=== PATIENT | female | born 1955 | race Caucasian/White ===

== ENCOUNTER 2017-10-25 10:53 | Inpatient (IN) ==
--- NOTE | 2017-10-25 13:39 | Emergency Department Note ---
Disposition Clinical Impression: Closed compression fracture of L3 lumbar vertebra Qualifiers: Encounter type: initial encounter Qualified Code(s): S32.030A - Wedge compression fracture of third lumbar vertebra, initial encounter for closed fracture Disposition: Admitted As Inpatient Condition: Fair Referrals: Alma Rosa Wilburn CNP [Primary Care Provider] - Forms: ED Satisfaction Letter Back Pain HPI - General Chief Complaint: ED Back Pain/Injury Stated Complaint: back pain Time Seen by Provider: 10/25/17 11:32 Source: patient Mode of arrival: private vehicle Limitations: no limitations Nursing Notes Reviewed: Yes Vital Signs Reviewed: Yes - History of Present Illness Pt Subjective Complaint: back pain, back injury Onset (ago): day(s) (1) Duration: constant Similar Symptoms Previously: No Location: lumbar spine Pain Severity: severe Quality: sharp, stabbing, aching Radiation: none Improves with: immobilization Worsens with: movement, sitting upright, walking Context: while lifting (a heavy couch) Associated symptoms: Denies: numbness, weakness, difficulty walking, incontinence of bowel/bladder, fever, chills, abdominal pain, dysuria, hematuria Treatments prior to arrival: NSAIDS - Related Data Home Medications Medication Instructions Recorded Confirmed Lisinopril [Zestril] 40 mg PO DAILY 01/31/17 10/25/17 Aspirin Enteric Coated [Aspirin EC] 81 mg PO DAILY 08/06/17 10/25/17 Atorvastatin [Lipitor] 10 mg PO HS 08/06/17 10/25/17 Fluticasone/Vilanterol [Breo 1 each IH DAILY 08/06/17 10/25/17 Ellipta 200-25 Mcg INH] Metoprolol Tartrate [Lopressor] 50 mg PO BID 08/06/17 10/25/17 amLODIPine [Norvasc] 5 mg PO DAILY 08/06/17 10/25/17 Ibuprofen [Motrin] 800 mg PO Q8HR PRN 10/25/17 10/25/17 Nitroglycerin [Nitrostat] 0.4 mg SL Q5M PRN 10/25/17 10/25/17 Allergies Allergy/AdvReac Type Severity Reaction Status Date / Time No Known Allergies Allergy Verified 10/25/17 11:10 All systems ED: reviewed and negative except as stated. Review of Systems: As Per HPI Constitutional: Denies: fever, chills, weakness Cardiovascular: Denies: chest pain, palpitations Gastrointestinal: Denies: abdominal pain, nausea, vomiting, diarrhea, constipation Genitourinary: Denies: urgency, dysuria, frequency, hematuria Musculoskeletal: Reports: as per HPI, back pain. Denies: neck pain, joint swelling Integumentary: Denies: rash Neurological: Denies: headache, weakness, numbness, paresthesias, confusion, abnormal gait, vertigo Hematological/Lymphatic: Denies: easy bleeding, easy bruising Past Medical History - Past Medical History Attestation: Yes The following information was validated with the patient. Source: patient Medical history: Reports: arthritis, COPD, coronary artery disease, hyperlipidemia, hypertension, other Surgical history: Reports: hysterectomy Psychiatric history: Reports: no psych history - Social History Smoking Status: Current every day smoker Smokeless Tobacco Status: No Alcohol use: Reports: occasionally Drug use: Reports: none Physical Exam - General Limitations: no limitations General appearance: alert, in no apparent distress - Head Head exam: atraumatic, normocephalic, normal inspection - Eye Eye exam: Present: normal appearance, PERRL. Absent: scleral icterus, conjunctival injection, periorbital swelling - ENT ENT exam: mucous membranes moist - Neck Neck exam: Present: normal inspection, full ROM, trachea midline. Absent: tenderness - Chest Chest inspection: Present: normal inspection - Respiratory Respiratory exam: Absent: respiratory distress - Cardiovascular Cardiovascular exam: Present: regular rate - Extremities Exam Extremities exam: Present: normal inspection, full ROM, normal capillary refill. Absent: tenderness, pedal edema - Expanded Lower Extremity Exam Gait: observed and limited by pain, antalgic - Back Exam Back exam: Present: normal inspection, tenderness, muscle spasm, paraspinal tenderness, vertebral tenderness (mid lumbar spine). Absent: full ROM, CVA tenderness (R), CVA tenderness (L), sciatic notch tenderness (R), sciatic notch tenderness (L) - Neurological Exam Neurological exam: Present: alert, oriented X3, CN II-XII intact, reflexes normal. Absent: motor sensory deficit - Psychiatric Psychiatric exam: Present: normal affect, normal mood - Skin Skin exam: Present: warm, dry, intact, normal color Course Course Narrative: PAtient moved furniture yesterday and while lifting a heavy couch she felt and heard a cracking sound in her back. She has had pain since then. It was worse upon waking this AM. She has no Hx of back injury or surgery and denies known osteoporosis or osteopenia. She has no signs or symptoms concerning for acute cord compression or epidural abscess. Xray ordered per nursing protocol. Xray shows a compression deformity of L3 vertebrae. MRI recommended. Patient is tender in this area. Pain meds ordered and Dr. Amador paged for consult. - Consultations Consultation #1: Case was discussed with Dr. Amador. He recommends admission to the hospitalist and MRI. Case was discussed with Dr. Henry. He has had [id number] time with the patient and agrees with the assessment and plan. Time: 13:45 Vital Signs Temperature 99.2 F 10/25/17 11:11 Pulse Rate 75 10/25/17 11:11 Respiratory Rate 20 10/25/17 11:11 Blood Pressure 143/81 10/25/17 11:11 O2 Sat by Pulse Oximetry 96 10/25/17 11:11 Temperature 99.2 F 10/25/17 11:11 Pulse Rate 75 10/25/17 11:11 Respiratory Rate 20 10/25/17 11:11 Blood Pressure 143/81 10/25/17 11:11 O2 Sat by Pulse Oximetry 96 10/25/17 11:11 Oxygen Delivery Oxygen Delivery Room Air Back Pain/Injury - Medical Records Medical records reviewed: Yes I reviewed the patient's medical records. - Radiology Data Radiology results reviewed: Yes I reviewed the patient's radiology results. Lumbar Spine X-Ray 10/25/17 12:19 IMPRESSION: Compression deformity of L3, possibly acute although technically age-indeterminate. If there is midline tenderness localized to this area, MRI should be considered to evaluate for acuity. D/ / John Croft MD / John Croft MD Interpreting Provider: John Croft MD
[2017-10-25] MEDS ORDERED: *HR* HYDROmorphone (PF) 1 MG/ML SYRINGE IM ONE (13:40)
[2017-10-25] MEDS ORDERED: Ondansetron ODT 4 MG TAB.RAPDIS SL ONE (13:40)
--- NOTE | 2017-10-25 13:57 | Emergency Department Note ---
Disposition Clinical Impression: Closed compression fracture of L3 lumbar vertebra Disposition: Admitted As Inpatient Condition: Fair General Adult HPI - General Chief complaint: ED Back Pain/Injury Stated complaint: back pain Time Seen by Provider: 10/25/17 11:32 Source: patient Limitations: no limitations - History of Present Illness Pain Scale: 8 - Related Data Home Medications Medication Instructions Recorded Confirmed Lisinopril [Zestril] 40 mg PO DAILY 01/31/17 10/25/17 Aspirin Enteric Coated [Aspirin EC] 81 mg PO DAILY 08/06/17 10/25/17 Atorvastatin [Lipitor] 10 mg PO HS 08/06/17 10/25/17 Fluticasone/Vilanterol [Breo 1 each IH DAILY 08/06/17 10/25/17 Ellipta 200-25 Mcg INH] Metoprolol Tartrate [Lopressor] 50 mg PO BID 08/06/17 10/25/17 amLODIPine [Norvasc] 5 mg PO DAILY 08/06/17 10/25/17 Ibuprofen [Motrin] 800 mg PO Q8HR PRN 10/25/17 10/25/17 Nitroglycerin [Nitrostat] 0.4 mg SL Q5M PRN 10/25/17 10/25/17 Ventolin Hfa 2 puff IH Q4H PRN 10/25/17 10/25/17 Allergies Allergy/AdvReac Type Severity Reaction Status Date / Time No Known Allergies Allergy Verified 10/25/17 11:10 Past Medical History - Past Medical History Medical history: Reports: arthritis, COPD, coronary artery disease, hyperlipidemia, hypertension, other Surgical history: Reports: hysterectomy Psychiatric history: Reports: no psych history - Social History Smoking Status: Current every day smoker Smokeless Tobacco Status: No Alcohol use: Reports: occasionally Drug use: Reports: none Physical Exam - General Limitations: no limitations General appearance: alert Course Vital Signs Temperature 99.2 F 10/25/17 11:11 Pulse Rate 75 10/25/17 11:11 Respiratory Rate 20 10/25/17 11:11 Blood Pressure 143/81 10/25/17 11:11 O2 Sat by Pulse Oximetry 96 10/25/17 11:11 Temperature 98.0 F 10/25/17 14:52 Pulse Rate 75 10/25/17 11:11 Respiratory Rate 18 10/25/17 14:52 Blood Pressure 125/75 10/25/17 14:52 O2 Sat by Pulse Oximetry 96 10/25/17 11:11 Oxygen Delivery Oxygen Delivery Room Air Attestation Statement - Attestation Attestation: For this encounter, I have reviewed the RADIO STATION MANAGER or PA documentation, treatment plan, and medical decision making; and I have had face to face time with this patient.Face to face time provided. Ortho-spine recs admission due to back fracture. She appears in no acute distress on exam
[2017-10-25] MEDS ORDERED: Naloxone 0.4 MG/ML INJ IVP PRN (16:00)
[2017-10-25] MEDS ORDERED: Ondansetron ODT 4 MG TAB.RAPDIS SL PRN (16:00)
[2017-10-25] MEDS ORDERED: Acetaminophen 325 MG TABLET PO PRN (16:00)
[2017-10-25] MEDS ORDERED: Nitroglycerin 0.4 MG TAB.SUBL SL PRN (16:03)
[2017-10-25] MEDS: *HR* HYDROmorphone (PF) 1 MG/ML SYRINGE IVP PRN ×2 (17:38→22:42)
[2017-10-25 18:05] LABS: Basophils # 0.1 K/mcL (0.0-0.2); Basophils % 0.6 %; Eosinophils # 0.3 K/mcL (0.0-0.6); Eosinophils % 2.8 %; Hematocrit 39.3 % (35.3-44.9); Hemoglobin 13.1 g/dL (11.5-15.4); Immature Granulocytes % 0.3 % (0-4); Lymphocytes # 1.5 K/mcL (0.6-4.6); Lymphocytes % 15.8 %; Mean Corpuscular HGB Conc 33.3 g/dL (31.6-35.5); Mean Corpuscular Hemoglobin 35.3 pg (28.0-33.3); Mean Corpuscular Volume 105.9 fL (83.0-100.0); Mean Platelet Volume 9.7 fL (9.4-12.4); Monocytes # 0.8 K/mcL (0.0-1.3); Monocytes % 8.7 %; Neutrophils # 6.8 K/mcL (1.6-8.9); Platelet Count 182 K/mcL (140-400); Red Blood Count 3.71 M/mcL (3.82-4.97); Red Cell Distribution Width 12.7 % (11.5-14.5); Segmented Neutrophils % 71.8 %
--- NOTE | 2017-10-25 18:16 | Internal Med History&Physical ---
Date of Encounter: 10/25/17 Time of Encounter: 18:11 Assessment and Plan (1) Closed compression fracture of L3 lumbar vertebra Current visit: Yes Status: Acute X-ray shows a compression deformity of L3 vertebrae-MRI has been ordered Dr. Amador orthopedic spine has been consulted We will continue with Dilaudid for pain Lidoderm patches Consult PT OT Qualifiers: Encounter type: initial encounter Qualified Code(s): S32.030A - Wedge compression fracture of third lumbar vertebra, initial encounter for closed fracture (2) COPD (chronic obstructive pulmonary disease) Current visit: Yes Status: Chronic Presently she is stable we will continue with oxygen and bronchodilators Qualifiers: COPD type: unspecified COPD Qualified Code(s): J44.9 - Chronic obstructive pulmonary disease, unspecified (3) CAD (coronary artery disease) Current visit: Yes Status: Chronic Continue with ASA beta nina statin leon nitrates as needed for chest pain Qualifiers: Coronary Disease-Associated Artery/Lesion type: red devil artery [place] vs. transplanted heart: red devil heart Associated angina: without angina Qualified Code(s): I25.10 - Atherosclerotic heart disease of red devil coronary artery without angina pectoris (4) DVT prophylaxis Current visit: Yes Status: Acute Heparin subcutaneous Internal Medicine - H&P: HPI Chief complaint: back pain Admitted From: Emergency Dept Plans for Post Hospital Care: Home History of present illness: Ms. Hooker is a 62 year old female past medical history COPD hypertension coronary artery disease tobacco use. According to the patient she has been in her usual state of health. Yesterday she attempted to move furniture while lifting a heavy couch she felt and heard a large cracking sound in her back. She experienced pain in her lower back. She went to lie down hoping the pain would ease. This a.m. when she awoke she continued to experience lower back pain. She denies any past history of back injury surgeries or osteoporosis. She denies any loss of bowel or bladder numbness tingling or loss of sensation. She presented to the ER with the above complaints x-ray was obtained which did reveal compression deformity of L3 vertebrae. Dr. Amador was consulted and MRI has been obtained. I did review this case with Dr. Chaparro who agrees with plan. Past Med Surg Social Fam HX - Past Medical History Medical history: arthritis, COPD, coronary artery disease, hyperlipidemia, hypertension, other Psychiatric history: no psych history - Past Surgical History Surgical History: hysterectomy - Social History Smoking Status: Current every day smoker Packs per day: 0.5 Smokeless Tobacco Status: No Alcohol use: occasionally Drug use: none - Family History Mother Living Status: Cause of : Ovarian cancer Father Living Status: Still Living Hx Family Cardiac Disorders: Yes (Heart disease) Internal Medicine - H&P: Meds Lisinopril [Zestril] 40 mg PO DAILY 01/31/17 [History] Aspirin Enteric Coated [Aspirin EC] 81 mg PO DAILY 08/06/17 [History] Atorvastatin [Lipitor] 10 mg PO HS 08/06/17 [History] Fluticasone/Vilanterol [Breo Ellipta 200-25 Mcg INH] 1 each IH DAILY 08/06/17 [ History] Metoprolol Tartrate [Lopressor] 50 mg PO BID 08/06/17 [History] amLODIPine [Norvasc] 5 mg PO DAILY 08/06/17 [History] Ibuprofen [Motrin] 800 mg PO Q8HR PRN 10/25/17 [History] Nitroglycerin [Nitrostat] 0.4 mg SL Q5M PRN 10/25/17 [History] Ventolin Hfa 2 puff IH Q4H PRN 10/25/17 [History] 3 Allergy/AdvReac Type Severity Reaction Status Date / Time No Known Allergies Allergy Verified 10/25/17 11:10 All Systems PM: A 10-system review of systems was performed and is negative for pertinent findings except as documented above in the HPI. - Constitutional Constitutional: no chills, no fever(s), no night sweats - EENT Eyes: no change in vision, no discharge, no pain, no photophobia Nose, mouth and throat: no dysphagia, no nasal discharge, no neck pain, no sore throat - Cardiovascular Cardiovascular ROS IM: no chest pain, no diaphoresis, no dyspnea, no lightheadedness, no palpitations, no syncope - Respiratory Respiratory: no cough, no dyspnea, no wheezing, no excessive phlegm production - Gastrointestinal Gastrointestinal: no abdominal pain, no diarrhea, no hematemesis, no hematochezia, no melena, no nausea, no vomiting - Genitourinary Genitourinary: no change in urinary stream, no dysuria, no flank pain, no hematuria - Musculoskeletal Musculoskeletal ROS IM: back pain - Integumentary Integumentary IM: no rash, no unusual bruising - Neurological Neurological ROS: no confusion, no convulsions, no focal weakness, no numbness, no tingling, no tremor(s) - Hematologic/Lymphatic Hematologic/Lymphatic: no easy bruising - Constitutional Vitals: Temp Pulse Resp BP Pulse Ox 98.0 F 75 18 125/75 96 10/25/17 14:52 10/25/17 11:11 10/25/17 14:52 10/25/17 14:52 10/25/17 11:11 General appearance: Present: A&O X 3, answers questions appropriately - Head Head exam: Present: atraumatic, normocephalic - Eye Eye exam: Present: PERRL, conjuntiva pink, sclera anicteric Pupils: Present: PERRL - Neck Neck exam general surgery: Present: supple, trachea midline. Absent: lymphadenopathy - Respiratory Respiratory exam: Present: CTAB. Absent: accessory muscle use, rales, rhonchi, wheezes - Cardiovascular Cardiovascular exam: Present: RRR, +S1, +S2. Absent: diastolic murmur, gallop, rubs, systolic murmur - GI/Abdominal GI/Abdominal exam: Present: normal bowel sounds, soft, no peritoneal signs. Absent: distended, tenderness - Extremities Exam Extremities exam: Present: warm, radial pulses palpable and symmetrical. Absent : calf tenderness, cyanotic, pedal edema - Neurological Exam Neurological exam: Present: CN II-XII intact, oriented X3, no focal deficits. Absent: pronater drift, facial droop, speech deficit - Skin Skin exam: Present: dry, intact Internal Med - H&P Results - Labs CBC & Chem 7: 10/25/17 17:56 10/25/17 17:56 Labs: Short CBC 10/25/17 Range/Units 17:56 WBC 9.5 (4.3-11.1) K/mcL Hgb 13.1 (11.5-15.4) g/dL Hct 39.3 (35.3-44.9) % Plt Count 182 (140-400) K/mcL Neutrophils # 6.8 (1.6-8.9) K/mcL - Diagnostic Studies Other Images Additional comments: Lumbar Spine X-Ray 10/25/17 12:19 IMPRESSION: Compression deformity of L3, possibly acute although technically age-indeterminate. If there is midline tenderness localized to this area, MRI should be considered to evaluate for acuity. D/ / John Croft MD / John Croft MD Interpreting Provider: John Croft MD Lumbar Spine MRI 10/25/17 14:20 IMPRESSION: Acute superior endplate fracture of L3. The findings were sent to the Radiology Results Communication Center at 5:07 pm on 10/25/2017to be communicated to a licensed caregiver. D/ / Quincy Marley MD / Quincy Marley MD Interpreting Provider: Quincy Marley MD - VTE Documentation of Mechanical Device: Intermittent pneumatic compression device
[2017-10-25 18:18] LABS: BUN/Creatinine Ratio 17 (6-26); Blood Urea Nitrogen 12 mg/dL (8-23); Calcium 9.1 mg/dL (8.6-10.3); Carbon Dioxide 28 mEq/L (23-29); Chloride 106 mEq/L (98-107); Glucose 118 mg/dL (70-105); Magnesium 1.8 mg/dL (1.6-2.6); Osmolality,Calculated 287 (280-300); Potassium 3.2 mEq/L (3.5-5.1); Sodium 138 mEq/L (136-145); eGFR For African Americans > 60 (> 60); eGFR For Non-African Americans > 60 (> 60)
[2017-10-25] MEDS: *HR* Heparin 5,000 UNIT/ML VIAL SQ SCH (18:39)
--- NOTE | 2017-10-25 18:46 | Event Note ---
Date of Encounter: 10/25/17 Time of Encounter: 18:46 Patient and examined with nurse practitioner. Agree with assessment and plan
[2017-10-26 01:35] LABS: Basophils % 0.5 %; Eosinophils # 0.3 K/mcL (0.0-0.6); Hematocrit 35.9 % (35.3-44.9); Immature Granulocytes % 0.5 % (0-4); Lymphocytes # 1.5 K/mcL (0.6-4.6); Lymphocytes % 17.9 %; Mean Corpuscular HGB Conc 33.4 g/dL (31.6-35.5); Mean Corpuscular Hemoglobin 35.8 pg (28.0-33.3); Mean Corpuscular Volume 107.2 fL (83.0-100.0); Mean Platelet Volume 10.1 fL (9.4-12.4); Monocytes # 0.9 K/mcL (0.0-1.3); Monocytes % 10.5 %; Neutrophils # 5.8 K/mcL (1.6-8.9); Platelet Count 167 K/mcL (140-400); Red Blood Count 3.35 M/mcL (3.82-4.97); Red Cell Distribution Width 12.7 % (11.5-14.5); Segmented Neutrophils % 67.6 %
[2017-10-26 01:40] LABS: Prothrombin Time 10.2 Seconds (9.4-12.1)
[2017-10-26 01:42] LABS: Activated Partial Thrombo Time 27.1 Seconds (26.0-36.0)
[2017-10-26 01:52] LABS: BUN/Creatinine Ratio 16 (6-26); Blood Urea Nitrogen 11 mg/dL (8-23); Calcium 8.6 mg/dL (8.6-10.3); Carbon Dioxide 27 mEq/L (23-29); Chloride 105 mEq/L (98-107); Glucose 102 mg/dL (70-105); Osmolality,Calculated 284 (280-300); Potassium 2.9 mEq/L (3.5-5.1); Sodium 137 mEq/L (136-145); eGFR For African Americans > 60 (> 60); eGFR For Non-African Americans > 60 (> 60)
[2017-10-26] MEDS: *HR* Heparin 5,000 UNIT/ML VIAL SQ SCH (02:20)
[2017-10-26] MEDS: *HR* HYDROmorphone (PF) 1 MG/ML SYRINGE IVP PRN ×3 (03:00→12:52)
[2017-10-26] MEDS ORDERED: Potassium Chloride Elixir 20 MEQ/15 ML UDC PO ONE (05:17)
[2017-10-26] MEDS ORDERED: amLODIPine 5 MG TABLET PO SCH (09:00)
[2017-10-26] MEDS ORDERED: (Fluticasone/Vilanterol [Breo Ellipta 200-25 Mcg Inh]) IH SCH (09:00)
[2017-10-26] MEDS ORDERED: Lisinopril 20 MG TABLET PO SCH (09:00)
[2017-10-26] MEDS ORDERED: Aspirin Enteric Coated 81 MG Tablet PO SCH (09:00)
[2017-10-26 14:24] LABS: Magnesium 1.6 mg/dL (1.6-2.6); Potassium 3.7 mEq/L (3.5-5.1)
--- NOTE | 2017-10-26 15:24 | Discharge Summary ---
Date of Encounter: 10/26/17 Time of Encounter: 15:22 - Discharge Medications Prescriptions: HYDROcodone/Acet 5/325 mg [[place] 5-325 mg] 1 tab PO Q4H PRN #20 tab PRN Reason: Moderate Pain Home Medications: Lisinopril [Zestril] 40 mg PO DAILY 01/31/17 [History] Aspirin Enteric Coated [Aspirin EC] 81 mg PO DAILY 08/06/17 [History] Atorvastatin [Lipitor] 10 mg PO HS 08/06/17 [History] Fluticasone/Vilanterol [Breo Ellipta 200-25 Mcg INH] 1 each IH DAILY 08/06/17 [ History] Metoprolol Tartrate [Lopressor] 50 mg PO BID 08/06/17 [History] amLODIPine [Norvasc] 5 mg PO DAILY 08/06/17 [History] Ibuprofen [Motrin] 800 mg PO Q8HR PRN 10/25/17 [History] Nitroglycerin [Nitrostat] 0.4 mg SL Q5M PRN 10/25/17 [History] Ventolin Hfa 2 puff IH Q4H PRN 10/25/17 [History] HYDROcodone/Acet 5/325 mg [[place] 5-325 mg] 1 tab PO Q4H PRN #20 tab 10/26/17 [Rx ] Allergies/Adverse Reactions: 3 Allergy/AdvReac Type Severity Reaction Status Date / Time No Known Allergies Allergy Verified 10/25/17 11:10 Date of admission: 10/25/17 16:00 Primary care physician: Alma Rosa Wilburn, - Patient Status Disposition: Home Health Service Condition: Fair - Discharge Instructions Follow Up With: Noble Amador Jr, MD [Partnered Physician] - 10/29/17 8:00 am (Per Dr Hurst) Additional Instructions: Take medications as prescribed. Go to follow-up appointment. Interval History: Patient presented after sudden onset back pain while she was lifting a couch. She sustained an acute L3 fracture wih 25% height loss. Patient is able to bare weight, still needs home PT. She has no neurological deficits. Will give the patient norco and prescription for back brace. Follow up with spine surgeon as outpatient. A family member will move to live with her in the house. She is agreable to above plan. Hospital course: Ms. Hooker is a 62 year old female - Time Spent with Patient Total time spent providing and/or coordinating discharge services: - Constitutional Vitals: Temp Pulse Resp BP Pulse Ox 98.0 F 67 17 117/62 93 10/26/17 12:11 10/26/17 12:11 10/26/17 12:11 10/26/17 12:11 10/26/17 12:11 General appearance: Present: A&O X 3, answers questions appropriately Exam: Genral: patient is Aand O not in distress Cardiac: Normal S1, S2, no additional sounds or murmurs Chest: Clear to auscultation Abdomen: soft non tender, non distended, Normal BS Neuro: no focal deficits LE: Can raise both lower extremetuies against gravity - VTE Documentation of Mechanical Device: Intermittent pneumatic compression device
[2017-10-26 15:58] VITALS: BP 144/83
--- NOTE | 2017-10-26 16:13 | Physician Discharge Referral ---
Home Health/Hosp Referral Info Transfer to: Home Health - Respiratory Orders Smoking Cessation: Smoking cessation has been advised. For more information, call the [place] Tobacco Quit Line at 4-381-FHSH-NOW. - Diet/Nutrition Diet/Nutrition Orders: Regular - Activity Activity Orders: Walker - Services Needed Following services are medically necessary services: Nursing, Physical Therapy, Occupational Therapy - Transfer Medications Prescriptions: HYDROcodone/Acet 5/325 mg [[place] 5-325 mg] 1 tab PO Q4H PRN #20 tab PRN Reason: Moderate Pain Home Medications: Lisinopril [Zestril] 40 mg PO DAILY 01/31/17 [History] Aspirin Enteric Coated [Aspirin EC] 81 mg PO DAILY 08/06/17 [History] Atorvastatin [Lipitor] 10 mg PO HS 08/06/17 [History] Fluticasone/Vilanterol [Breo Ellipta 200-25 Mcg INH] 1 each IH DAILY 08/06/17 [ History] Metoprolol Tartrate [Lopressor] 50 mg PO BID 08/06/17 [History] amLODIPine [Norvasc] 5 mg PO DAILY 08/06/17 [History] Ibuprofen [Motrin] 800 mg PO Q8HR PRN 10/25/17 [History] Nitroglycerin [Nitrostat] 0.4 mg SL Q5M PRN 10/25/17 [History] Ventolin Hfa 2 puff IH Q4H PRN 10/25/17 [History] HYDROcodone/Acet 5/325 mg [[place] 5-325 mg] 1 tab PO Q4H PRN #20 tab 10/26/17 [Rx ] Allergies/Adverse Reactions: 3 Allergy/AdvReac Type Severity Reaction Status Date / Time No Known Allergies Allergy Verified 10/25/17 11:10 Certification: Further, I certify that my clinical findings support that this patient is homebound (i.e. absences from home require considerable and taxing effort and are for medical reasons or episcopal services or infrequently or short duration when for other reasons) because: Homebound Reason: Patient requires assistance of a person or device to safely leave home Attestation: My signature below is to certify that this patient is under my care and that I, or nurse practitioner, or a physician's operations assistant working with me, has a face-to -face encounter with this patient.
== END 2017-10-26 17:40 | disposition home health service (06) | DRG 347 ==
LOC: EMEROO 10:53 → 3NENU 10:53
PROVIDERS: ADMIT Hospitalist; ATTEND Internal Medicine

== ENCOUNTER 2019-07-08 01:28 | Inpatient (IN) ==
[2019-07-08] MEDS ORDERED: Acetaminophen IV 500 MG/50 ML INFUS..BTL IVPB ONE (03:49)
[2019-07-08] MEDS ORDERED: Naloxone 0.4 MG/ML INJ IVP PRN (04:59)
--- NOTE | 2019-07-08 05:39 | Internal Med History&Physical ---
Date of Encounter: 07/08/19 Time of Encounter: 04:00 Internal Medicine - H&P: HPI Chief complaint: Right Leg Pain Admitted From: Hospital to Hospital Transfer Plans for Post Hospital Care: Home History of present illness: Ms. Ortega is a 63 year old female with past medical history significant for CAD, COPD with continuous 2lpm home 02, hypertension, hyperlipidemia, GERD, osteoporosis, depression, and tobacco abuse who presents as hospital transfer from [facility] ER where she presented for sudden onset right leg pain. States she was sitting in chair talking on phone and had sudden sharp pain to her right leg. Denies adamantly any trauma, falls, striking head, loosing consciousness, or anticoagulant use. Has been unable to bear weight to her right lower extremity since. Pain is exacerbated with movement and improved with rest. Sending ER obtained xray of right femur which showed displaced proximal right femoral shaft fracture. Sending ER discussed with manager operational Orthopedic surgeon Dr Abdalla who agreed to see patient in consult, sending ER provider also placed patient in hare traction splint which ortho agreed with. Upon my assessment patient no longer in hare traction splint. Patient currently denies any headache, numbness, tingling, chest pain, shortness of breath, cough, abdominal pain, bowel or bladder changes. Reports following regularly with her PCP, Pulmonary, and Cardiology. Reports daily cigarette smoking and occasional 1-2 shots of liquor once per week, denies any drug use. Past Med Surg Social Fam HX - Past Medical History Medical history: arthritis, COPD, coronary artery disease, GERD, hyperlipidemia, hypertension, osteoporosis, other Additional medical history: smoker, angina, O2 NC @ 2L, Psychiatric history: depression - Past Surgical History Surgical History: cataract, hysterectomy, orthopedic, other Additional surgical history: scar tissue removed from bladder, scar tissue removed from ovaries, scar tissues removed from bowels, carpel tunnel bilateral, bladder repair, heart cath, teeth removal, kypho - Social History Smoking Status: Current every day smoker Packs per day: 1/2 Smokeless Tobacco Status: No Alcohol use: none Drug use: none - Family History Mother Living Status: Hx Family Cancer: Yes (Ovarian with chi) Father Living Status: Hx Family Cardiac Disorders: Yes Internal Medicine - H&P: Meds Aspirin Enteric Coated [Aspirin EC] 81 mg PO DAILY 08/06/17 [History] Atorvastatin [Lipitor] 10 mg PO DAILY 08/06/17 [History] Fluticasone/Vilanterol [Breo Ellipta 200-25 Mcg INH] 1 puff IH DAILY 08/06/17 [History] Metoprolol Tartrate [Lopressor] 50 mg PO BID 08/06/17 [History] Albuterol Sulfate [Proventil Inhaler] 2 puff IH Q4HR PRN #0 10/25/17 [History] Nitroglycerin [Nitrostat] 0.4 mg SL Q5M PRN 10/25/17 [History] Alendronate Sodium [Fosamax] 70 mg PO LUCAS 01/16/19 [History] raNITIdine HCl [Ranitidine HCl] 300 mg PO DAILY 01/16/19 [History] Levothyroxine [Synthroid] 75 mcg PO 0600 #30 tablet 01/19/19 [Rx] Megestrol Acetate [Megace] 40 mg PO DAILY #30 tablet 01/19/19 [Rx] Sertraline [Zoloft] 25 mg PO DAILY #30 tablet 01/19/19 [Rx] Vitamin B Complex/Vit C/Vit E [Stresstab] 1 each PO DAILY #30 tablet 01/19/19 [Rx] traZODone [TraZODone] 25 mg PO HS #15 tablet 01/19/19 [Rx] Amlodipine Besylate 5 mg PO DAILY 06/25/19 [History] Oxygen 2 each .ROUTE AD 06/25/19 [History] Allergy/AdvReac Type Severity Reaction Status Date / Time No Known Allergies Allergy Verified 01/16/19 09:50 All Systems PM: A 10-system review of systems was performed and is negative for pertinent findings except as documented above in the HPI. - Constitutional Vitals: Temp Pulse Resp BP Pulse Ox 98.1 F 81 15 132/76 95 07/08/19 04:09 07/08/19 04:09 07/08/19 04:09 07/08/19 04:09 07/08/19 04:09 Exam: General: Alert and oriented. Skin:Normal color, no rash, no lesions. HEENT:Pupils equal, round and reactive. Cardiovascular:Normal S1 & S2, no rubs, murmurs or gallops. No JVD. Pulse regular. Lungs:Breath sounds decreased, no wheezes or crackles. Abdomen:Soft, non-tender, no rigidity. Extremities:No joint swelling or clubbing. Swelling and tenderness noted to right area of femur, distal PMS intact. Neurological:Normal cognition and motor skills. Pulses:Carotid and radial pulses normal +2. Rest of the physical exam is non contributory. - Assessment and Plan (1) Right femoral shaft fracture Current Visit: Yes Status: Acute Assessment and plan: States she was sitting in chair talking on phone and had sudden sharp pain to her right leg. Denies adamantly any trauma, falls, striking head, loosing consciousness, or anticoagulant use. Sending ER obtained x-ray of right femur which showed displaced proximal right femoral shaft fracture. Sending ER discussed with manager operational Orthopedic surgeon Dr Abdalla who agreed to see patient in consult, sending ER provider also placed patient in hare traction splint which ortho agreed with, ortho consult order placed. Upon my assessment patient no longer in hare traction splint, discussed same with on-call orthopedic surgeon Dr. Brown who advised okay without as long as pain remains controlled and he will see patient in a.m. Pain control with PRN pain medications. NPO. Qualifiers: Encounter type: initial encounter Fracture type: closed Fracture morphology: spiral Fracture alignment: displaced Qualified Code(s): S72.341A - Displaced spiral fracture of shaft of right femur, initial encounter for closed fracture (2) Decreased GFR Current Visit: Yes Status: Acute Assessment and plan: Minimally decreased at 59. Creatinine and BUNs within normal limits. Repeat labs ordered. (3) Decreased potassium in the blood Current Visit: Yes Status: Acute Assessment and plan: Minimally decreased at 3.4 Repeat labs ordered. (4) COPD (chronic obstructive pulmonary disease) Current Visit: No Status: Chronic Assessment and plan: Not in acute exacerbation. Continue home continuous oxygen at 2 LPM. Continue home medications once verified. Qualifiers: COPD type: unspecified COPD Qualified Code(s): J44.9 - Chronic obstructive pulmonary disease, unspecified (5) Uses alcohol occasionally Current Visit: Yes Status: Chronic Assessment and plan: Reports occasional 1-2 shots of liquor once per week. Denies any history of alcohol withdrawal. Monitor for any signs of alcohol withdrawal. (6) Tobacco abuse Current Visit: Yes Status: Chronic Assessment and plan: Cessation strongly encouraged. - Time Spent With Patient Total time spent is greater than 50% in coordination of care (as documented) at patient's floor/unit and/or counseling patient:
[2019-07-08 06:10] LABS: Basophils # 0.1 K/mcL (0.0-0.2); Basophils % 0.8 %; Eosinophils % 0.3 %; Hematocrit 35.6 % (35.3-44.9); Hemoglobin 11.6 g/dL (11.5-15.4); Immature Granulocytes % 0.4 % (0-4); Lymphocytes # 1.2 K/mcL (0.6-4.6); Lymphocytes % 10.5 %; Mean Corpuscular HGB Conc 32.6 g/dL (31.6-35.5); Mean Corpuscular Hemoglobin 34.5 pg (28.0-33.3); Mean Platelet Volume 9.6 fL (9.4-12.4); Monocytes # 0.9 K/mcL (0.0-1.3); Monocytes % 7.9 %; Neutrophils # 8.8 K/mcL (1.6-8.9); Platelet Count 241 K/mcL (140-400); Red Blood Count 3.36 M/mcL (3.82-4.97); Red Cell Distribution Width 13.3 % (11.5-14.5); Segmented Neutrophils % 80.1 %
[2019-07-08 06:37] LABS: Alanine Aminotransferase 25 Units/L (7-52); Albumin 4.4 g/dL (3.5-5.7); Albumin/Globulin Ratio 1.9 (1.1-2.2); Alkaline Phosphatase 48 Units/L (34-104); Aspartate Amino Transferase 29 Units/L (13-39); BUN/Creatinine Ratio 30 (6-26); Bilirubin,Total 0.5 mg/dL (0.3-1.0); Blood Urea Nitrogen 22 mg/dL (8-23); Calcium 8.5 mg/dL (8.6-10.3); Carbon Dioxide 19 mEq/L (23-29); Chloride 108 mEq/L (98-107); Globulin 2.3 g/dL (2.4-3.5); Glucose 108 mg/dL (70-105); Osmolality,Calculated 302 (280-300); Potassium 3.6 mEq/L (3.5-5.1); Sodium 144 mEq/L (136-145); Total Protein 6.7 g/dL (6.4-8.9); eGFR For African Americans > 60 (> 60); eGFR For Non-African Americans > 60 (> 60)
--- NOTE | 2019-07-08 07:33 | Orthopedic Consult Note ---
Date of Encounter: 07/08/19 Time of Encounter: 07:31 Assessment and Plan (1) Femur fracture, right Current Visit: Yes Status: Acute I did have a long discussion with the patient regarding the diagnosis. She has a right femur fracture as described above. My recommendation is for reduction and stabilization with a right femoral nail. The risks discussed included but were not limited to stiffness, bleeding, infection, blood clots, damage to neurovascular structures, tendons, ligaments, and bone. Also discussed was the risk of continued symptoms and possible need for further procedures. I did discuss the anesthesia risks including stroke, heart attack, and . I did discuss the reasonable, foreseeable postoperative course with the patient. The patient did wish to proceed and consent was obtained. In the meantime she is currently in a pillow splint which is controlling her pain reasonably. I have reviewed each of the pertinent components of this chart and any other pertinent medical component(s) including but not limited to pertinent application of the chief complaint, history of present illness, current medication, medical history, allergies, family history, medical history, surgical history, social history, review of systems, vital signs, and any other portion of the pertinent patient medical record directly or indirectly involved with this patient care that is pertinent based on my medical decision process. DOROTEO Ward Qualifiers: Qualified Code(s): S72.91XA - Unspecified fracture of right femur, initial encounter for closed fracture History of Present Illness HPI: Ms. Ortega is a 63 year old female currently admitted to the hospitalist for a right femur fracture. The patient denies any significant trauma but did feel a pop in her right thigh bone. Pictures confirm fracture and she was referred to our facility for definitive management. She complains of isolated sharp and achy pain to the right thigh, worse with any use her movement and better with rest. No other injuries. No numbness, tingling, or any other associated signs or symptoms. No other modifying factors. At baseline she is an unassisted community ambulator. Past Med Surg Social Fam HX - Past Medical History Medical history: arthritis, COPD, coronary artery disease, GERD, hyperlipidemia, hypertension, osteoporosis, other Additional medical history: smoker, angina, O2 NC @ 2L, Psychiatric history: depression - Past Surgical History Surgical History: cataract, hysterectomy, orthopedic, other Additional surgical history: scar tissue removed from bladder, scar tissue removed from ovaries, scar tissues removed from bowels, carpel tunnel bilateral, bladder repair, heart cath, teeth removal, kypho - Social History Smoking Status: Current every day smoker Packs per day: 1/2 Smokeless Tobacco Status: No Alcohol use: none Drug use: none - Family History Mother Living Status: Hx Family Cancer: Yes (Ovarian with chi) Father Living Status: Hx Family Cardiac Disorders: Yes Medications and Allergies Aspirin Enteric Coated [Aspirin EC] 81 mg PO DAILY 08/06/17 [History] Atorvastatin [Lipitor] 10 mg PO DAILY 08/06/17 [History] Fluticasone/Vilanterol [Breo Ellipta 200-25 Mcg INH] 1 puff IH DAILY 08/06/17 [History] Metoprolol Tartrate [Lopressor] 50 mg PO BID 08/06/17 [History] Albuterol Sulfate [Proventil Inhaler] 2 puff IH Q4HR PRN #0 10/25/17 [History] Nitroglycerin [Nitrostat] 0.4 mg SL Q5M PRN 10/25/17 [History] Alendronate Sodium [Fosamax] 70 mg PO LUCAS 01/16/19 [History] raNITIdine HCl [Ranitidine HCl] 300 mg PO DAILY 01/16/19 [History] Levothyroxine [Synthroid] 75 mcg PO 0600 #30 tablet 01/19/19 [Rx] Megestrol Acetate [Megace] 40 mg PO DAILY #30 tablet 01/19/19 [Rx] Sertraline [Zoloft] 25 mg PO DAILY #30 tablet 01/19/19 [Rx] Vitamin B Complex/Vit C/Vit E [Stresstab] 1 each PO DAILY #30 tablet 01/19/19 [Rx] traZODone [TraZODone] 25 mg PO HS #15 tablet 01/19/19 [Rx] Amlodipine Besylate 5 mg PO DAILY 06/25/19 [History] Oxygen 2 each .ROUTE AD 06/25/19 [History] Allergy/AdvReac Type Severity Reaction Status Date / Time No Known Allergies Allergy Verified 01/16/19 09:50 All Systems Reviewed: Constitutional -The patient denies any fevers, chills, or feelings of illness Neurologic -The patient denies any numbness, tingling, or burning pains Physical Exam - Constitutional Vitals: Temp Pulse Resp BP Pulse Ox 97.9 F 89 14 123/69 93 07/08/19 06:47 07/08/19 06:47 07/08/19 06:47 07/08/19 06:47 07/08/19 06:47 Constitutional -Vitals reviewed -The patient is well developed and well nourished. -Mood is pleasant. -The patient is well groomed. Psychiatric -The patient is fully alert and oriented x 3. Respiratory: -Respiratory effort normal Abdomen: -Soft abdomen -Non tender -Non distended: Left upper extremity: -No deformities. The overlying skin is intact. No obvious signs of acute trauma. -No tenderness to palpation throughout. -No significant pain with passive motion of the shoulder, elbow, wrist, and fingers within the limits of the bed. -Able to make an "OK" sign, cross the index and long fingers, and extend the thumb. -Sensation grossly intact to light touch throughout the median, radial, and ulnar distributions. -Radial pulse is present; Fingers have good capillary refill. Right upper extremity: -No deformities. The overlying skin is intact. No obvious signs of acute trauma. -No tenderness to palpation throughout. -No significant pain with passive motion of the shoulder, elbow, wrist, and fingers within the limits of the bed. -Able to make an "OK" sign, cross the index and long fingers, and extend the thumb. -Sensation grossly intact to light touch throughout the median, radial, and ulnar distributions. -Radial pulse is present; Fingers have good capillary refill. Left lower extremity: -No deformities. The overlying skin is intact. No obvious signs of acute trauma. -No tenderness to palpation throughout. -No pain with passive motion of the hip, knee, ankle, and toes within the limits of the bed. -No pain with axial loading of the thigh. -Able to dorsiflex and plantarflex the ankle and toes. -Sensation is grossly intact to light touch throughout the sural, saphenous, superficial peroneal, and deep peroneal distributions. -Toes have good capillary refill. Right lower extremity: -The extremity is shortened and externally rotated. The overlying skin is intact. -There is tenderness in the groin region as well as the proximal lateral thigh. -I did not range the hip due to the known fracture. -No tenderness along the distal thigh, leg, ankle, foot, or toes. -Able to dorsiflex and plantarflex the ankle and toes. -Sensation is grossly intact to light touch throughout the sural, saphenous, superficial peroneal, and deep peroneal distributions. -Toes have good capillary refill. Diagnostic Imaging: I did personally review and interpret x-rays of the right femur show a spiral s haft fracture in the proximal third of the femur. Results - Labs Result Diagrams: 07/08/19 05:21 07/08/19 05:21 Labs: Abnormal lab results RBC 3.36 M/mcL (3.82-4.97) L 07/08/19 05:21 MCV 106.0 fL (83.0-100.0) H 07/08/19 05:21 MCH 34.5 pg (28.0-33.3) H 07/08/19 05:21 Chloride 108 mEq/L (98-107) H 07/08/19 05:21 Carbon Dioxide 19 mEq/L (23-29) L 07/08/19 05:21 BUN/Creatinine Ratio 30 (6-26) H 07/08/19 05:21 Glucose 108 mg/dL (70-105) H 07/08/19 05:21 Calculated Osmolality 302 (280-300) H 07/08/19 05:21 Calcium 8.5 mg/dL (8.6-10.3) L 07/08/19 05:21 Globulin 2.3 g/dL (2.4-3.5) L 07/08/19 05:21 H & H 07/08/19 Range/Units 05:21 Hgb 11.6 (11.5-15.4) g/dL Hct 35.6 (35.3-44.9) % All other labs normal. Consult Discharge Plan - Plan Referrals: Alma Rosa Wilburn CNP [Primary Care Provider] -
--- NOTE | 2019-07-08 08:44 | Cardiology Consult Note ---
Date of Encounter: 07/08/19 Time of Encounter: 08:42 Assessment and Plan (1) Preop cardiovascular exam Current Visit: Yes Status: Acute Patient admits to exertional angina last episode one week ago with mild ST changes laterally suggestive of ischemia with known nonobstructive coronary artery disease. We will proceed with chemical stress test and echocardiogram is pending. Further recommendations once these tests are available to review (2) Chest pain Current Visit: No Status: Resolved Admits to exertional angina as described above, chemical stress test rule out ischemia. Echo pending Qualifiers: Chest pain type: other chest pain Qualified Code(s): R07.89 - Other chest pain; R07.8 - Other chest pain Discussion w patient/family: The assessment and plan as outlined above was discussed with the patient and/or family members who expressed understanding and agreement. All questions were a nswered. Thank you for involving us in the care of your patient. Please call with any questions. History of Present Illness Consult date: 07/08/19 Consult reason: Chest Pain and preop clearance Chief complaint: Chest Pain and leg pain History of present illness: Ms. Ortega is a 63 year old female with history of COPD, recent fall requiring surgery of her right lower leg with orthopedics requesting a cardiac clearance. Patient had [facility] August 2017 with mild to moderate nonobstructive coronary artery disease. EKG today shows lateral ST changes which are borderline. Upon further discussion with the patient she admits to exertional angina which is epigastric nonradiating associated with some mild shortness of breath. Patient has had on and off episodes of chest pain and her last episode was a week ago. Due to her abnormal EKG history of nonobstructive coronary artery disease and typical angina which she describes we will proceed with a chemical stress test to rule out ischemia. Past Med Surg Social Fam HX - Past Medical History Medical history: arthritis, COPD, coronary artery disease, GERD, hyperlipidemia, hypertension, osteoporosis, other Additional medical history: smoker, angina, O2 NC @ 2L, Psychiatric history: depression - Past Surgical History Surgical History: cataract, hysterectomy, orthopedic, other Additional surgical history: scar tissue removed from bladder, scar tissue removed from ovaries, scar tissues removed from bowels, carpel tunnel bilateral, bladder repair, heart cath, teeth removal, kypho - Social History Smoking Status: Current every day smoker Packs per day: 1/2 Smokeless Tobacco Status: No Alcohol use: none Drug use: none - Family History Mother Living Status: Hx Family Cancer: Yes (Ovarian with chi) Father Living Status: Hx Family Cardiac Disorders: Yes Medications and Allergies Aspirin Enteric Coated [Aspirin EC] 81 mg PO DAILY 08/06/17 [History] Atorvastatin [Lipitor] 10 mg PO DAILY 08/06/17 [History] Fluticasone/Vilanterol [Breo Ellipta 200-25 Mcg INH] 1 puff IH DAILY 08/06/17 [History] Metoprolol Tartrate [Lopressor] 50 mg PO BID 08/06/17 [History] Albuterol Sulfate [Proventil Inhaler] 2 puff IH Q4HR PRN #0 10/25/17 [History] Nitroglycerin [Nitrostat] 0.4 mg SL Q5M PRN 10/25/17 [History] Alendronate Sodium [Fosamax] 70 mg PO LUCAS 01/16/19 [History] raNITIdine HCl [Ranitidine HCl] 300 mg PO DAILY 01/16/19 [History] Levothyroxine [Synthroid] 75 mcg PO 0600 #30 tablet 01/19/19 [Rx] Megestrol Acetate [Megace] 40 mg PO DAILY #30 tablet 01/19/19 [Rx] Sertraline [Zoloft] 25 mg PO DAILY #30 tablet 01/19/19 [Rx] Vitamin B Complex/Vit C/Vit E [Stresstab] 1 each PO DAILY #30 tablet 01/19/19 [Rx] traZODone [TraZODone] 25 mg PO HS #15 tablet 01/19/19 [Rx] Amlodipine Besylate 5 mg PO DAILY 06/25/19 [History] Oxygen 2 each .ROUTE AD 06/25/19 [History] Allergy/AdvReac Type Severity Reaction Status Date / Time No Known Allergies Allergy Verified 01/16/19 09:50 All Systems Review: The remainder of the systems were reviewed and are negative Physical Examination Vital Signs, Last 4 Hours Temp Pulse Resp BP Pulse Ox 07/08/19 06:47 97.9 F 89 14 123/69 93 General: Conversant, No Apparent Distress HEENT: Atraumatic, Normocephaly, Mucus Membranes Moist Neck: No JVD, Normal carotid pulses Cardiac: Reg Rate and Rhythm, Normal S1 and S2, No Murmur Lungs: Normal Breath Sounds, No Wheeze, Rales, Rhonchi Neuro: Alert and responsive, No focal deficits noted Abdomen: Soft, Non-Tender Skin: No rashes noted on visualized skin Musculoskeletal: No Chest Wall Tenderness Extremities: No Clubbing, No Cyanosis, No Edema, Normal Pulses Results 07/08/19 05:21 07/08/19 05:21 Lab Results 07/08/19 07/08/19 05:21 05:21 WBC 11.0 Hgb 11.6 Hct 35.6 Plt Count 241 Sodium 144 Potassium 3.6 Chloride 108 H Carbon Dioxide 19 L BUN 22 Creatinine 0.73 Glucose 108 H Calcium 8.5 L Total Bilirubin 0.5 AST 29 ALT 25 Alkaline Phosphatase 48 Consult Discharge Plan - Plan Referrals: Alma Rosa Wilburn, REPAIR SUPERVISOR [Primary Care Provider] -
[2019-07-08] MEDS ORDERED: Regadenoson 0.4 MG/5 ML SYRINGE IVP ONE (09:04)
[2019-07-08 09:12] LABS: Troponin I < 0.03 ng/mL (< 0.04)
[2019-07-08] MEDS ORDERED: Acetaminophen 325 MG TABLET PO PRN ×2 (09:44→10:12)
[2019-07-08] MEDS ORDERED: *HR* OxyCODONE/APAP 7.5/325 TABLET PO PRN ×2 (09:54→10:13)
[2019-07-08] MEDS ORDERED: *HR* Metoprolol 5 MG/5 ML VIAL IVP PRN (10:10)
--- NOTE | 2019-07-08 10:21 | Internal Med Progress Note ---
<Yumi Cornejo - Last Filed: 07/08/19 16:23> Hospitalist Progress Note - Encounter Date of Encounter: 07/08/19 - Exam Vitals: Temp Pulse Resp BP Pulse Ox 97.9 F 117 16 132/78 95 07/08/19 14:53 07/08/19 14:53 07/08/19 14:53 07/08/19 14:53 07/08/19 14:53 - Assessment and Plan (1) COPD (chronic obstructive pulmonary disease) Current Visit: No Status: Chronic (2) Right femoral shaft fracture Current Visit: Yes Status: Acute (3) Decreased GFR Current Visit: Yes Status: Acute (4) Decreased potassium in the blood Current Visit: Yes Status: Acute (5) Tobacco abuse Current Visit: Yes Status: Chronic (6) Uses alcohol occasionally Current Visit: Yes Status: Chronic - Time Spent with Patient Total time spent is greater than 50% in coordination of care (as documented) at patient's floor/unit and/or counseling patient: Internal Medicine: Result - Labs CBC & Chem 7: 07/08/19 05:21 07/08/19 05:21 Labs: Short CBC 07/08/19 Range/Units 05:21 WBC 11.0 (4.3-11.1) K/mcL Hgb 11.6 (11.5-15.4) g/dL Hct 35.6 (35.3-44.9) % Plt Count 241 (140-400) K/mcL Neutrophils # 8.8 (1.6-8.9) K/mcL BMP 07/08/19 05:21 Sodium 144 Potassium 3.6 Chloride 108 H Carbon Dioxide 19 L BUN 22 Creatinine 0.73 Glucose 108 H Calcium 8.5 L Cardiac Enzymes 07/08/19 07/08/19 Range/Units 05:21 11:46 Troponin I < 0.03 < 0.03 (< 0.04) ng/mL Liver Function 07/08/19 Range/Units 05:21 Total Bilirubin 0.5 (0.3-1.0) mg/dL AST 29 (13-39) Units/L ALT 25 (7-52) Units/L Alkaline Phosphatase 48 (34-104) Units/L Albumin 4.4 (3.5-5.7) g/dL - Impressions Impressions Echocardiogram Limited Views 07/08/19 08:06 Impressions: LVEF 60-65%. Grossly normal right ventricular structure and function. Estimated RA pressure is 3 mmHg. Left Ventricular Wall Motion: Rest Echo Findings All wall segments showed normal motion. Findings: Study Quality * Technically sub-optimal due to poor echocardiographic windows. ECG Findings * Sinus tachycardia. Left Ventricle * LVEF 60-65%. * Normal LV chamber size, wall thickness. Right Ventricle * Grossly normal right ventricular structure and function. Left Atrium * Normal left atrial size. Right Atrium * Normal right atrial size. Tricuspid Valve * Estimated RA pressure is 3 mmHg. IVC * The IVC is not dilated. * > 50% respiratory change Consult Discharge Plan - Plan Referrals: Alma Rosa Wilburn, BASIN OPERATOR [Primary Care Provider] - - Attending Attestation The history, physical exam, and medical decision making was performed by the medical student either while I was physically present and actively involved or I personally re-performed the exam and medical decision making. I have verified the accuracy of the medical student's documentation with regards to the history, physical exam findings, and medical decision making. Ms Jordan requires admission for femur fracture requiring surgical intervention awake, in extreme pain in leg with any movement whatsoever, even of the upper body. She insists she had no injury or falls. She admits to sob and chest pain at home with minimal exertion. none currently. She admits to etoh use, but denies every day use, but again states 2 shots weekly. When asked if she ever has been in etoh w/d in past she did not answer question and attempted to roll over and cried out in pain. gen- alert, awake,appears stated age, anxious appearing, uncomfortable eyes- pupils equal round cv- reg rate and rhythm, normal s1,s2, no murmurs appreciated, no le edema lungs- ctabl, no wheezing, rhonchi or crackles, normal resp effort neuro- AAOx3, CN grossly intact, no hand tremor Right Femoral Shaft fracture, ? spontaneous- ortho to take to OR this evening as d/w Pipo Abdalla and [place], prn pain control and med adjustments as needed -need to get further hx from pt regarding spontaneous fx and will fu operative report/if bone bx taken Pre Op risk assessment given her med hx and reports of typical cp at home requ ired cards eval- echo normal EF and unremarkable, stress test ordered however due to pain she could not have chem stress test preformed, I have discussed with Dr Abdalla, whom d/w Dr Lundy, aware she is high risk without stress test preformed and results obtained, pt aware as well, but requires urgent surgical intervention, surgery will proceed with OR time this evening Etoh Use- pt report of use seems odd and she limits details she gives- empirically starting ciwa protocol further dx and plan as noted by resident <Carl Rojo - Last Filed: 07/08/19 16:49> Hospitalist Progress Note - Encounter Date of Encounter: 07/08/19 Time of Encounter: 10:21 - Subjective Interval History: Pt lying in bed on my arrival. Complaining of having a dry mouth due to NPO Status. States that her right leg hurts. Denies any CP, shortness of breath, cough, fever, abdominal pain. - Exam Vitals: Temp Pulse Resp BP Pulse Ox 97.9 F 89 14 123/69 93 07/08/19 06:47 07/08/19 06:47 07/08/19 06:47 07/08/19 06:47 07/08/19 06:47 Exam: Gen: AAOx3, mild distress, pleasant CVS: RRR, S1, S2, no murmurs Lungs: CTA B/L, symmetric expansion, no rales Extremities: radial pulses normal 2+ B/L, right leg in splint, distal motor and neurovascular function intact. Sensation intact Abdominal: soft, no tenderness, no rebound - Assessment and Plan (1) Right femoral shaft fracture Current Visit: Yes Status: Acute Assessment and Plan: -Pt was sitting in chair at home talking on phone when sudden onset of pain in right leg -Denies any trauma, losing consciousness, striking head, falls, or anticoagulant use -ER obtained Xray of right femur which showed displaced proximal right femoral shaft fx -Pt placed in hare traction splint, dermatological surgeon ortho surgeon consulted -Pt admitted to hospital, ortho has seen pt -Surgery 07/08 -Pain controlled with PRN pain meds -NPO -Currently needing cardiac clearance (2) Preop cardiovascular exam Current Visit: Yes Status: Acute Assessment and Plan: -EKG performed 07/[address] changes in lateral leads that were borderline -Admits to exertional angina episode last week that was epigastric in nature non radiating and accompanied with SOB. -Pt has known history of CAD; LHC performed Aug 2017 showed mild to moderate nonobstructive CAD. -Echo performed 07/08 showed normal right/left ventricular function and EF 60-65% -In light of urgency of surgery, chemical stress test is to be delayed for the time being. Surgery performed 07/08 -Cardiology following (3) COPD (chronic obstructive pulmonary disease) Current Visit: No Status: Chronic Assessment and Plan: -Known history of COPD, on 2L O2 at home -Continue home medications (4) Tobacco abuse Current Visit: Yes Status: Chronic Assessment and Plan: -Known smoking history. 1/2 pack a day. -Cessation counseled (5) Uses alcohol occasionally Current Visit: Yes Status: Chronic - Time Spent with Patient Total time spent is greater than 50% in coordination of care (as documented) at patient's floor/unit and/or counseling patient: Internal Medicine: Result - Labs CBC & Chem 7: 07/08/19 05:21 07/08/19 05:21 Labs: Short CBC 07/08/19 Range/Units 05:21 WBC 11.0 (4.3-11.1) K/mcL Hgb 11.6 (11.5-15.4) g/dL Hct 35.6 (35.3-44.9) % Plt Count 241 (140-400) K/mcL Neutrophils # 8.8 (1.6-8.9) K/mcL BMP 07/08/19 05:21 Sodium 144 Potassium 3.6 Chloride 108 H Carbon Dioxide 19 L BUN 22 Creatinine 0.73 Glucose 108 H Calcium 8.5 L Cardiac Enzymes 07/08/19 Range/Units 05:21 Troponin I < 0.03 (< 0.04) ng/mL Liver Function 07/08/19 Range/Units 05:21 Total Bilirubin 0.5 (0.3-1.0) mg/dL AST 29 (13-39) Units/L ALT 25 (7-52) Units/L Alkaline Phosphatase 48 (34-104) Units/L Albumin 4.4 (3.5-5.7) g/dL <Yumi Cornejo M - Last Filed: 07/08/19 16:23> (1) COPD (chronic obstructive pulmonary disease) Qualifiers: COPD type: unspecified COPD Qualified Code(s): J44.9 - Chronic obstructive pulmonary disease, unspecified (2) Right femoral shaft fracture Qualifiers: Encounter type: initial encounter Fracture type: closed Fracture morphology: spiral Fracture alignment: displaced Qualified Code(s): S72.341A - Displaced spiral fracture of shaft of right femur, initial encounter for closed fracture <Carl Rojo R - Last Filed: 07/08/19 16:49> (1) Right femoral shaft fracture Qualifiers: Encounter type: initial encounter Fracture type: closed Fracture morphology: spiral Fracture alignment: displaced Qualified Code(s): S72.341A - Displaced spiral fracture of shaft of right femur, initial encounter for closed fracture (3) COPD (chronic obstructive pulmonary disease) Qualifiers: COPD type: unspecified COPD Qualified Code(s): J44.9 - Chronic obstructive pulmonary disease, unspecified
[2019-07-08] MEDS ORDERED: Ipratropium/Albuterol Neb 3 ML IH SCH (12:00)
[2019-07-08] MEDS ORDERED: *HR* LORazepam 2 MG/ML VIAL IVP PRN ×3 (14:07)
[2019-07-08] MEDS ORDERED: *HR* HYDROmorphone (PF) 1 MG/ML SYRINGE IVP ONE (15:43)
--- NOTE | 2019-07-08 18:55 | Anesthesia Evaluation PreOp ---
Date of Encounter: 07/08/19 Time of Encounter: 21:25 - Past History Planned Operation: Right Femoral Nailing Cardiac History: Angina, HTN, Hyperlipidemia Pulmonary History: Smoker (40+ years), COPD (home O2 continuously 2L) BLOOD DONOR RECRUITER History: Syncope (01/2019) Other Medical History: Thyroid, GERD Anesthesia History: No Prior Anesthetic Complications, Past Anesthesia (hysterectomy) Alcohol Use: none Drug use: none Medications and Allergies Aspirin Enteric Coated [Aspirin EC] 81 mg PO DAILY 08/06/17 [History] Atorvastatin [Lipitor] 10 mg PO DAILY 08/06/17 [History] Fluticasone/Vilanterol [Breo Ellipta 200-25 Mcg INH] 1 puff IH DAILY 08/06/17 [History] Metoprolol Tartrate [Lopressor] 50 mg PO BID 08/06/17 [History] Alendronate Sodium [Fosamax] 70 mg PO LUCAS 01/16/19 [History] raNITIdine HCl [Ranitidine HCl] 300 mg PO DAILY 01/16/19 [History] Levothyroxine [Synthroid] 75 mcg PO 0600 #30 tablet 01/19/19 [Rx] Megestrol Acetate [Megace] 40 mg PO DAILY #30 tablet 01/19/19 [Rx] Sertraline [Zoloft] 25 mg PO DAILY #30 tablet 01/19/19 [Rx] Vitamin B Complex/Vit C/Vit E [Stresstab] 1 each PO DAILY #30 tablet 01/19/19 [Rx] traZODone [TraZODone] 25 mg PO HS #15 tablet 01/19/19 [Rx] Amlodipine Besylate 5 mg PO DAILY 06/25/19 [History] Nitroglycerin [Nitrostat] 0.4 mg SL Q5MIN PRN 07/08/19 [History] Allergy/AdvReac Type Severity Reaction Status Date / Time No Known Allergies Allergy Verified 07/08/19 20:33 - Meds/Allergy Pre-op Review Medications Reviewed: Yes Allergies Reviewed: Yes Beta Blockers on Current Med List: Yes Anesthesia Results - Labs 07/08/19 05:21 07/08/19 05:21 - Imaging EKG: report reviewed (01/16/2019 SINUS RHYTHM NONSPECIFIC T-WAVE ABNORMALITY) Chest x-ray: other (01/17/2019 CTA Chest IMPRESSION: 1. No evidence of pulmonary embolic disease. 2. Bilateral pleural effusions. No acute pulmonary infiltrate. COPD. 3. Hepatic steatosis) Additional studies: 07/08/2019 Limited Echo Impressions: LVEF 60-65%. Grossly normal right ventricular structure and function. Estimated RA pressure is 3 mmHg. 08/06/2017 LEFT HEART CATH Indications: Abnormal Test - Stress Impressions: Nonobstructive coronary artery disease. The left ventricle is normal and has normal contractility EF 65% Recommendations: Optimal medical therapy of patient's disease. Aggressive risk factor modification. 05/29/2017 Stress Impression: There is a small sized, mild intensity perfusion defect during stress involving the apex in which mild ischemia cannot be ruled out. Pharmacologic ECG was non diagnostic for ischemia due to baseline ST abnormalities. During pharmacologic stress, the patient becomes tachycardiac and ST segments depress and T waves invert. Findings are not specific due to baseline ECG abnormalities. Gated EF = 53%. Recommend clinical correlation. Findings communicated to ordering provider. Anesthesia Exam Vital Signs/O2 Sat, Most Current Temp Pulse Resp BP Pulse Ox 98.6 F 93 18 158/90 92 07/08/19 18:40 07/08/19 18:40 07/08/19 19:40 07/08/19 18:40 07/08/19 19:40 Height: 5'7''/1.7m Weight: 119 lbs/54.4 kg NPO (# of Hours): 8 Pain Scale: 7 Pain Scale Used: Numeric (1 - 10) - HEENT Pupil (Motor): EOMI Mallampati: II Teeth: Edentulous Denture Type: Upper: Complete, Lower: Complete Oral Opening: Greater than 3 - BLOOD DONOR RECRUITER LOC: Oriented BLOOD DONOR RECRUITER Motor: Normal RUE, Normal LUE, Normal RLE, Normal LLE, Normal Face BLOOD DONOR RECRUITER Sensory: Normal: RUE, LUE, RLE, LLE, Face - Cardiac Rhythm: Regular Murmur: None - Pulmonary Breath Sounds: bilateral Clear Respiratory Effort: Symmetrical Anesthesia Assess/Plan ASA Score: 4 Level of consciousness: Cooperative, Oriented, Tranquil Anesthetic Plan: General Monitoring Plan: Standard Monitors Recovery Plan: PACU
[2019-07-08] MEDS ORDERED: *HR* Propofol 200 MG/20 ML VIAL IVP ONE (21:38)
[2019-07-08] MEDS ORDERED: *HR* FentaNYL (PF) 100 MCG/2 ML VIAL ONE (21:38)
[2019-07-08] MEDS ORDERED: Lidocaine -MPF 2% 2 ML VIAL ONE (21:39)
[2019-07-08] MEDS ORDERED: *HR* Succinylcholine 200 MG/10 ML VIAL IVP ONE (21:39)
[2019-07-08] MEDS ORDERED: *HR* Midazolam HCl 2 MG/2 ML VIAL ONE (21:39)
[2019-07-08] MEDS ORDERED: *HR* Rocuronium Bromide 50 MG/5 ML VIAL ONE (21:39)
[2019-07-08] MEDS ORDERED: *HR* PHENYLEPHRINE 1,000 MCG/10 ML SYRINGE IVP ONE (21:39)
[2019-07-08] MEDS ORDERED: Lidocaine HCL 4 ML Topical Solution (Laryng-O-Jet Kit Sterile Pak) TP ONE (21:41)
[2019-07-08] MEDS ORDERED: *HR* Metoprolol 5 MG/5 ML VIAL IVP ONE (21:57)
[2019-07-08] MEDS ORDERED: Budesonide/Formoterol 160/4.5 1 PUFF INH IH SCH (22:00)
[2019-07-08] MEDS ORDERED: Acetaminophen IV 1,000 MG/100 ML INFUS..BTL ONE (23:07)
[2019-07-08] MEDS ORDERED: *HR* HYDROmorphone (PF) 1 MG/ML SYRINGE IVP PRN (23:10)
[2019-07-08] MEDS ORDERED: Ondansetron 4 MG/2 ML VIAL ONE (23:11)
[2019-07-08] MEDS ORDERED: Dexamethasone 4 MG/ML VIAL ONE (23:15)
--- NOTE | 2019-07-09 00:13 | Orthopedic Operative Note ---
Date of procedure: 07/09/19 Procedure: OPERATIVE REPORT SURGEON: Fredy Abdalla MD PREOPERATIVE DIAGNOSIS: Right femur fracture POSTOPERATIVE DIAGNOSIS: Right femur fracture PROCEDURE: Open reduction and femoral nailing of the right femoral shaft ANESTHESIA: Gen. anesthesia IMPLANTS: Synthes TFN-A 360 mm x 12 mm 130 degree nail with a 90 degree blade and 2 distal interlocking screws PREOPERATIVE NOTE The surgical plan was reviewed with the patient. The risks, benefits, alternatives, and potential complications of this procedure were discussed with the patient including injury to veins, arteries, nerves, tendons, ligaments, and bone. Also discussed were the risks of infection, bleeding, pain, blood clots, the possible need for a blood transfusion, the possible need for further procedures, heart attack, stroke, and . Additional risks include malunion, nonunion, hardware failure and the need for revision. All of this was explained in simple terms, and the patient verbalized understanding and wished to proceed. Consent was given to proceed with surgery. PROCEDURE: The patient was seen in the preoperative holding area where the identify and the consent were confirmed. The right thigh was marked. Final questions were answered. The patient was brought back to the operating room. A huddle was performed with the patient and all vital surgical team members confirming patient identity, the correct procedure, and the correct operative site. General anesthesia was administered. The patient was placed on the traction table and traction was placed with slight internal rotation of the right lower extremity. X-rays confirmed good alignment of the fracture. The operative extremity was prepped and draped in the usual sterile fashion. A surgical time out was performed immediately preceding the incision with all personnel in the operating room to confirm patient identity, the correct operative site and extremity, correct radiographic studies, availability of appropriate surgical equipment, and agreement on the planned procedure. A small longitudinal incision was made through the skin, subcutaneous tissue, and the gluteal fascia and the guidewire was placed in the proximal femur. This is overdrilled and the ball-tipped guidewire placed down the femoral shaft. Reaming proceeded up to 13.5 mm and the definitive nail was placed on the femoral shaft after measuring. X-rays of the fracture site showed significant varus angulation at the fracture site after placement of the nail. Therefore the decision was made for nail removal and to perform an open reduction with cabling. Therefore a longitudinal incision was made laterally over the fracture site and dissection proceeded through the fascia and vastus lateralis down to the fracture. Dissection of the vastus off the fracture site allowed exposure for clamping and to Kinamed super cables were placed around the femur and cinched down. This did allow for anatomic reduction of the fracture. The definitive nail was then placed on the femoral canal and there is no significant displacement after placement of the nail. Using a triple sleeve the guidewire was drilled into the head of the femur and this was overdrilled and the definitive blade was tapped into position. Using perfect [place] technique, 2 distal interlocking screws were placed. The wounds were all copiously irrigated and the deep fascia was closed with interrupted 0 Vicryl stitches and the skin was closed with 3-0 Vicryl stitches followed by tabitha. X-rays confirmed that alignment of the fracture and placement of the hardware. A soft, sterile dressing was applied. The instrument, sponge, and needle counts were correct after wound closure. POST OPERATIVE PLAN: Weightbearing as tolerated, aspirin 325 mg daily for DVT prophylaxis for 4 weeks, and occupational and physical therapy. Was there an data control assistant present: No Estimated blood loss (cc): 200
--- NOTE | 2019-07-09 00:26 | Anesthesia Evaluation Post Op ---
Date of Encounter: 07/09/19 Time of Encounter: 00:26 - Vital Signs Vital Signs: Vital Signs/O2 Sat, Most Current Temp Pulse Resp BP Pulse Ox 99.4 F 97 12 124/77 91 07/08/19 23:57 07/09/19 00:17 07/09/19 00:17 07/09/19 00:17 07/09/19 00:17 - Lungs Lungs: Clear Ascult./Percussion - Airway Airway: Non-obstructed - Cardiovascular Regular Rate - Mental Status Mental Status: Asleep with brisk response to light stimulation - Pain Pain Scale: 3 Pain Scale used: Numeric (1 - 10) - Nausea Vomiting Nausea Vomiting: Not Present - Hydration Hydration: Ice chips, Morales catheter - Discharge PostOp Status: Transfer Patient to floor
[2019-07-09] MEDS ORDERED: Acetaminophen 325 MG TABLET PO PRN (00:30)
[2019-07-09] MEDS ORDERED: *HR* LORazepam 2 MG/ML VIAL IVP PRN ×3 (00:30)
[2019-07-09] MEDS ORDERED: Naloxone 0.4 MG/ML INJ IVP PRN (00:30)
[2019-07-09] MEDS ORDERED: *HR* Metoprolol 5 MG/5 ML VIAL IVP PRN (00:30)
[2019-07-09] MEDS ORDERED: Regadenoson 0.4 MG/5 ML SYRINGE IVP ONE ×2 (00:30→06:07)
[2019-07-09 04:35] LABS: Basophils % 0.3 %; Hematocrit 32.5 % (35.3-44.9); Hemoglobin 10.4 g/dL (11.5-15.4); Immature Granulocytes % 0.6 % (0-4); Lymphocytes # 0.5 K/mcL (0.6-4.6); Lymphocytes % 4.4 %; Mean Corpuscular Hemoglobin 33.9 pg (28.0-33.3); Mean Corpuscular Volume 105.9 fL (83.0-100.0); Mean Platelet Volume 10.2 fL (9.4-12.4); Monocytes # 0.8 K/mcL (0.0-1.3); Monocytes % 6.9 %; Neutrophils # 9.9 K/mcL (1.6-8.9); Platelet Count 192 K/mcL (140-400); Red Blood Count 3.07 M/mcL (3.82-4.97); Red Cell Distribution Width 13.6 % (11.5-14.5); Segmented Neutrophils % 87.8 %; White Blood Count 11.3 K/mcL (4.3-11.1)
[2019-07-09 05:12] LABS: BUN/Creatinine Ratio 32 (6-26); Blood Urea Nitrogen 25 mg/dL (8-23); Calcium 7.6 mg/dL (8.6-10.3); Carbon Dioxide 22 mEq/L (23-29); Chloride 106 mEq/L (98-107); Glucose 147 mg/dL (70-105); Osmolality,Calculated 293 (280-300); Potassium 4.5 mEq/L (3.5-5.1); Sodium 138 mEq/L (136-145); eGFR For African Americans > 60 (> 60); eGFR For Non-African Americans > 60 (> 60)
[2019-07-09] MEDS: Budesonide/Formoterol 160/4.5 1 PUFF INH IH SCH ×2 (07:19→20:56)
--- NOTE | 2019-07-09 07:50 | Orthopedics Progress Note ---
Date of Encounter: 07/09/19 Time of Encounter: 07:49 - Assessment and Plan (1) Femur fracture, right Current Visit: Yes Status: Acute Qualifiers: Qualified Code(s): S72.91XA - Unspecified fracture of right femur, initial encounter for closed fracture Subjective Interval history: S: Patient is seen today and has no complaints. O: Afebrile and vital signs are stable Operative extremity dressing is clean, dry, and intact. Neurovascularly intact distally Postoperative x-rays show good alignment of the femur A: Reduction and fixation of the right femur P: Morales out today Aspirin for DVT prophylaxis 2 doses of postoperative antibiotics Therapy when able Dressing change tomorrow. Objective Vital signs: Vital Signs Temp Pulse Resp BP Pulse Ox 07/09/19 07:18 20 93 07/09/19 07:10 97.9 F 104 15 128/85 93 07/09/19 03:40 98.3 F 97 12 118/78 93 07/09/19 02:40 97.9 F 108 15 108/75 92 07/09/19 01:40 101 12 112/77 90 07/09/19 01:10 98 F 92 10 115/74 91 07/09/19 00:40 98 F 92 11 114/79 92 07/09/19 00:27 98.0 F 93 12 123/74 91 07/09/19 00:17 97 12 124/77 91 07/09/19 00:07 98 12 121/81 92 07/08/19 23:57 99.4 F 110 16 141/81 95 07/08/19 19:40 18 92 07/08/19 18:40 98.6 F 93 14 158/90 91 07/08/19 14:53 97.9 F 117 16 132/78 95 07/08/19 11:51 18 91 Intake and Output 07/08/19 07/08/19 07/09/19 15:59 23:59 07:59 Output Total 300 / 750 200 / 200 Balance -300 / -700 -200 / -200 Output: Urine 100 / 100 Estimated Blood Loss 200 / 200 Catheter 200 / 200 Other: Weight 54.2 kg Patient Weight 07/09/19 23:59 Weight 54.2 kg - Labs CBC & BMP: 07/09/19 04:10 07/09/19 04:10 Labs: Abnormal lab results WBC 11.3 K/mcL (4.3-11.1) H 07/09/19 04:10 RBC 3.07 M/mcL (3.82-4.97) L 07/09/19 04:10 Hgb 10.4 g/dL (11.5-15.4) L 07/09/19 04:10 Hct 32.5 % (35.3-44.9) L 07/09/19 04:10 MCV 105.9 fL (83.0-100.0) H 07/09/19 04:10 MCH 33.9 pg (28.0-33.3) H 07/09/19 04:10 Neutrophils # 9.9 K/mcL (1.6-8.9) H 07/09/19 04:10 Lymphocytes # 0.5 K/mcL (0.6-4.6) L 07/09/19 04:10 Chloride 108 mEq/L (98-107) H 07/08/19 05:21 Carbon Dioxide 22 mEq/L (23-29) L 07/09/19 04:10 BUN 25 mg/dL (8-23) H 07/09/19 04:10 BUN/Creatinine Ratio 32 (6-26) H 07/09/19 04:10 Glucose 147 mg/dL (70-105) H 07/09/19 04:10 Calculated Osmolality 302 (280-300) H 07/08/19 05:21 Calcium 7.6 mg/dL (8.6-10.3) L 07/09/19 04:10 Globulin 2.3 g/dL (2.4-3.5) L 07/08/19 05:21 Consult Discharge Plan - Plan Referrals: Alma Rosa Wilburn, THRESHER BROOMCORN [Primary Care Provider] -
[2019-07-09] MEDS ORDERED: Morphine Sulfate 2 MG/ML SYRINGE IVP ONE ×2 (08:00)
--- NOTE | 2019-07-09 08:48 | Event Note ---
Date of Encounter: 07/09/19 Time of Encounter: 08:46 - Cardiology Event Note Pt was taken to surgery yesterday afternoon. She was poor candidate for ischemic evaluation prior to surgery due to inability to lay flat/still for stress test d/t hip pain. Dr. Lundy discussed with surgeon, was high risk, but now s/p surgery. Stress test cancelled. Cardiology signing off. Reconsult PRN.
[2019-07-09] MEDS ORDERED: Aspirin 81 MG TAB.CHEW PO ONE (08:49)
[2019-07-09] MEDS: Vitamin B Complex/Vit C/Vit E 1 EACH TABLET PO SCH (08:57)
[2019-07-09] MEDS: amLODIPine 5 MG TABLET PO SCH (08:57)
[2019-07-09] MEDS: Famotidine 20 MG TABLET PO SCH (08:58)
[2019-07-09] MEDS ORDERED: Aspirin Enteric Coated 325 MG Tablet PO SCH (09:00)
[2019-07-09] MEDS ORDERED: NON-FORMULARY MEDICATION 1 EACH EACH (Fluticasone/Vilanterol [Breo Ellipta 200-25 Mcg Inh] IH SCH (09:00)
[2019-07-09] MEDS ORDERED: Famotidine 20 MG TABLET PO SCH (09:00)
[2019-07-09] MEDS ORDERED: Aspirin Enteric Coated 81 MG Tablet PO SCH (09:00)
[2019-07-09] MEDS ORDERED: amLODIPine 5 MG TABLET PO SCH (09:00)
[2019-07-09] MEDS ORDERED: Vitamin B Complex/Vit C/Vit E 1 EACH TABLET PO SCH (09:00)
[2019-07-09] MEDS ORDERED: Calcium Gluconate 1gm/50mL 1 GM/50 ML BAG IVPB ONE (09:08)
--- NOTE | 2019-07-09 09:25 | Event Note ---
Date of Encounter: 07/09/19 Time of Encounter: : I was called to the bedside this morning at 0945 after Mrs. Davis was found to be having substernal crushing chest pain rated 2 out of 10. Onset was while the patient was at rest at 0800, was not associated with nausea or diaphoresis, but was associated with feeling of bloating in the stomach and some belching. Also associated with mild shortness of breath which patient states is her baseline. Pain did not radiate anywhere. Pain was not pleuritic in nature and was not reproduced with pressure on the sternum. * Patient's heart rate was in the 130s, she had been around 100 at all recent previous vital sign checks * No murmurs rubs or gallops were auscultated * Her breathing appeared labored and she had mild tachypnea * Oxygen saturation was between 89 and 91 325 mg chewable aspirin were given, she was increased to 6 L by nasal cannula with instruction to titrate down to O2 sat above 92, stat EKG and stat troponin were ordered. Stat chest x-ray was also ordered, and patient was made nothing by mouth Her EKG performed at 0857 showed sinus rhythm at a rate of 111, normal axis, MA interval of 128, QRS of 81, QTc of 412. There is ST segment depression in leads V3 through V6, which appears worse when compared with prior of July 08 at 0534. The patient's pain resolved after the aspirin was given and the oxygen was titrated up. On repeat exam at approximately 09 100 she was working significantly less hard to breathe, looked much more comfortable and reported feeling much better. I contacted Dr. Lundy of cardiology, who had been seeing the patient, but signed of care yesterday. He suggested that we add on a repeat EKG now that the patient's pain has resolved and she is back to near her baseline, and to verify with ortho if the patient is okay to be given heparin or Plavix or if she is a candidate for left heart catheterization and possible PCI. I contacted Dr Abdalla of Ortho and updated him on the situation, he stated that she was at increased risk to have hematoma formation or bleeding from the surgical site, but that these complications could be dealt with if they arise, and we should feel free to do whatever we deem needed to assess and treat the pateint's chest pain.
[2019-07-09] MEDS ORDERED: *HR* Heparin 5,000 UNIT/ML VIAL IVP PRN ×2 (10:40)
[2019-07-09] MEDS ORDERED: Heparin 25,000 UNIT/250 ML D5W 25,000 UNIT/250 ML IV.SOLN IVC SCH (10:45)
[2019-07-09 11:41] LABS: Hemoglobin 9.7 g/dL (11.5-15.4); Mean Corpuscular HGB Conc 32.3 g/dL (31.6-35.5); Mean Corpuscular Volume 105.3 fL (83.0-100.0); Mean Platelet Volume 10.3 fL (9.4-12.4); Platelet Count 181 K/mcL (140-400); Red Blood Count 2.85 M/mcL (3.82-4.97); Red Cell Distribution Width 13.4 % (11.5-14.5); White Blood Count 11.9 K/mcL (4.3-11.1)
[2019-07-09 11:47] LABS: Heparin anti-factor XA UFH 0.05 IU/mL (0.30-0.70); Prothrombin Time 11.2 Seconds (9.4-12.1)
[2019-07-09] MEDS ORDERED: *HR* OxyCODONE Immed Rel 5 MG TABLET PO STA (11:51)
[2019-07-09] MEDS ORDERED: Ketorolac 15 MG/ML VIAL IVP PRN (12:10)
[2019-07-09] MEDS ORDERED: Ringers Solution, Lactated 1,000 ML IVC SCH (12:15)
--- NOTE | 2019-07-09 12:46 | Internal Med Progress Note ---
<Yumi Cornejo - Last Filed: 07/09/19 14:00> Hospitalist Progress Note - Encounter Date of Encounter: 07/09/19 - Exam Vitals: Temp Pulse Resp BP Pulse Ox 99.2 F 99 18 115/79 96 07/09/19 11:05 07/09/19 11:05 07/09/19 11:05 07/09/19 11:05 07/09/19 11:05 - Assessment and Plan (1) COPD (chronic obstructive pulmonary disease) Current Visit: No Status: Chronic (2) Right femoral shaft fracture Current Visit: Yes Status: Acute (3) Decreased GFR Current Visit: Yes Status: Acute (4) Decreased potassium in the blood Current Visit: Yes Status: Acute (5) Tobacco abuse Current Visit: Yes Status: Chronic (6) Uses alcohol occasionally Current Visit: Yes Status: Chronic - Time Spent with Patient Total time spent is greater than 50% in coordination of care (as documented) at patient's floor/unit and/or counseling patient: Internal Medicine: Result - Labs CBC & Chem 7: 07/09/19 11:15 07/09/19 04:10 Labs: Short CBC 07/09/19 07/09/19 Range/Units 04:10 11:15 WBC 11.3 H 11.9 H (4.3-11.1) K/mcL Hgb 10.4 L 9.7 L (11.5-15.4) g/dL Hct 32.5 L 30.0 L (35.3-44.9) % Plt Count 192 181 (140-400) K/mcL Neutrophils # 9.9 H (1.6-8.9) K/mcL BMP 07/09/19 04:10 Sodium 138 Potassium 4.5 Chloride 106 Carbon Dioxide 22 L BUN 25 H Creatinine 0.79 Glucose 147 H Calcium 7.6 L Cardiac Enzymes 07/09/19 Range/Units 09:28 Troponin I < 0.03 (< 0.04) ng/mL - ABG Interpretation ABG results: PT/INR, D-dimer PT 11.2 Seconds (9.4-12.1) 07/09/19 11:15 - Impressions Impressions Fluoroscopy 07/08/19 21:45 IMPRESSION: Documentation of fluoroscopy time. No radiologist present for procedure. D/ / Ren Neal / Ren Neal Interpreting Provider: Ren Neal Femur X-Ray 07/09/19 00:07 IMPRESSION: Internal fixation of oblique proximal femoral fracture. D/ / Ren Neal / Ren Neal Interpreting Provider: Ren Neal Chest X-Ray 07/09/19 09:25 IMPRESSION: 1. No radiographic finding to account for patient's chest pain and shortness of breath. D/ / Robert Carroll MD / Robert Carroll MD Interpreting Provider: Robert Carroll MD Consult Discharge Plan - Plan Referrals: Alma Rosa Wilburn, SERVER ENGINEER [Primary Care Provider] - - Attending Attestation The history, physical exam, and medical decision making was performed by the medical student either while I was physically present and actively involved or I personally re-performed the exam and medical decision making. I have verified the accuracy of the medical student's documentation with regards to the history, physical exam findings, and medical decision making. Ms Ortega requires admission for femur fracture requiring surgical intervention awake, was just having substernal chest pain, now resolved with asa and O2 nc increase. no current pain, pressure, sob or palpitations. no leg pain, + flatus and eating/drinking post op gen- alert, awake,appears stated age, cv- reg rate and rhythm, normal s1,s2, no murmurs appreciated, no le edema lungs- ctabl, no wheezing, rhonchi or crackles, normal resp effort neuro- AAOx3, CN grossly intact Right Femoral Shaft fracture, ? spontaneous- s/p ORIF/nail 07/08, prn pain control and med adjustments as needed, post op care as per ortho Unstable Angina/NSTEMI Non obstructive CAD hx EKG this morning reviewed and ST depressions more prominent that prior in [place], trop neg, CK pendong -cards was contacted and updated, hep gtt recommended by Dr Lundy, and c onfirmed with Dr Rm shelton to do hep gtt, plavix and LHC if needed, will monitor hgbs on gtt today, further cards recs pending eval and will keep npo in prep for stress test v LHC -cont asa, statin, bb Etoh Use- pt report of use seems odd and she limits details she gives- empirically on ciwa protocol, no ativan needs thus far further dx and plan as noted by resident <Carl Rojo - Last Filed: 07/09/19 15:32> Hospitalist Progress Note - Encounter Date of Encounter: 07/09/19 Time of Encounter: 09:15 - Subjective Interval History: Pt was sitting up in bed eating breakfast upon my arrival. She states that her right leg pain is under control. However during ROS, she admitted to crushing substernal chest pain that did not radiate. The pain began shortly after eating and lasted several minutes. This was accompanied by shortness of breath that she states was normal. She says this chest pain occurs intermittently but it "usuall y goes away". She denied any nausea or diaphoresis but admitted to feeling bloated. - Exam Vitals: Temp Pulse Resp BP Pulse Ox 99.2 F 99 18 115/79 96 07/09/19 11:05 07/09/19 11:05 07/09/19 11:05 07/09/19 11:05 07/09/19 11:05 Exam: Gen: AAOx3, Pleasant, mild distress CVS: S1, S2, regular rhythm, tachycardic with rate 130s--baseline 100 Lungs: Clear breath sounds, tachypneic, labored breathing Abdominal: epigastric tenderness to palpation that doesn't radiate Extremities: right femur in splint; neurovascular and motor function intact LE B/L - Assessment and Plan (1) Chest pain Current Visit: Yes Status: Acute Assessment and Plan: -EKG performed 07/[address] changes in lateral leads that were borderline -Admits to exertional angina episode last week that was epigastric in nature non radiating and accompanied with SOB. -Pt has known history of CAD; LHC performed Aug 2017 showed mild to moderate nonobstructive CAD. -Echo performed 07/08 showed normal right/left ventricular function and EF 60-65% -Chemical stress test was cancelled due to pt intolerance to pain; decision was made to continue with surgery due to severity of injury -Pt began c/o crushing substernal chest pain accompanied with SOB, tachycardia, labored breathing during physical exam 07/09 -Was given ASA, titrated O2 from 3L to 6L. Stat EKG ordered -Will start ASA 81mg tomorrow along with continuing statin and beta nina -Low dose ACS heparin protocol begun 07/09 -Possible NSTEMI; cardiology has been consulted -Will keep NPO until troponin comes back, if negative will discontinue NPO -Holding heart cath due to resolution of symptoms---will monitor closely (2) Right femoral shaft fracture Current Visit: Yes Status: Acute Assessment and Plan: -Pt was sitting in chair at home talking on phone when sudden onset of pain in right leg -Denies any trauma, losing consciousness, striking head, falls, or anti coagulant use -ER obtained Xray of right femur which showed displaced proximal right femoral shaft fx -Pt placed in hare traction splint, station agent ortho surgeon consulted -Pt admitted to hospital, ortho has seen pt -Surgery 07/08 -Pain controlled with PRN pain meds -Expected drop in hemoglobin however we will continue to monitor and recheck in am -PT evaluation expected today (3) COPD (chronic obstructive pulmonary disease) Current Visit: No Status: Chronic Assessment and Plan: -Known history of COPD; on 2L of oxygen at home -This is a chronic issue; no current acute exacerbation -O2 was titrated to 6L 07/09 in setting of suspected NSTEMI -Continue home medications (4) Tobacco abuse Current Visit: Yes Status: Chronic Assessment and Plan: -Current 1/2pack a day smoker -Smoking cessation counseled (5) Uses alcohol occasionally Current Visit: Yes Status: Chronic DVT Prophylaxis: Will d/c 325mg ASA; begin 81mg ASA - Time Spent with Patient Total time spent is greater than 50% in coordination of care (as documented) at patient's floor/unit and/or counseling patient: Internal Medicine: Result - Labs CBC & Chem 7: 07/09/19 11:15 07/09/19 04:10 Labs: Short CBC 07/09/19 07/09/19 Range/Units 04:10 11:15 WBC 11.3 H 11.9 H (4.3-11.1) K/mcL Hgb 10.4 L 9.7 L (11.5-15.4) g/dL Hct 32.5 L 30.0 L (35.3-44.9) % Plt Count 192 181 (140-400) K/mcL Neutrophils # 9.9 H (1.6-8.9) K/mcL BMP 07/09/19 04:10 Sodium 138 Potassium 4.5 Chloride 106 Carbon Dioxide 22 L BUN 25 H Creatinine 0.79 Glucose 147 H Calcium 7.6 L Cardiac Enzymes 07/09/19 Range/Units 09:28 Troponin I < 0.03 (< 0.04) ng/mL - ABG Interpretation ABG results: PT/INR, D-dimer PT 11.2 Seconds (9.4-12.1) 07/09/19 11:15 - Impressions Impressions Fluoroscopy 07/08/19 21:45 IMPRESSION: Documentation of fluoroscopy time. No radiologist present for procedure. D/ / Ren Neal / Ren Neal Interpreting Provider: Ren Neal Femur X-Ray 07/09/19 00:07 IMPRESSION: Internal fixation of oblique proximal femoral fracture. D/ / Ren Neal / Ren Neal Interpreting Provider: Ren Neal Chest X-Ray 07/09/19 09:25 IMPRESSION: 1. No radiographic finding to account for patient's chest pain and shortness of breath. D/ / Robert Carroll MD / Robert Carroll MD Interpreting Provider: Robert Carroll MD <Yumi Cornejo M - Last Filed: 07/09/19 14:00> (1) COPD (chronic obstructive pulmonary disease) Qualifiers: COPD type: unspecified COPD Qualified Code(s): J44.9 - Chronic obstructive pulmonary disease, unspecified (2) Right femoral shaft fracture Qualifiers: Encounter type: initial encounter Fracture type: closed Fracture morphology: spiral Fracture alignment: displaced Qualified Code(s): S72.341A - Displaced spiral fracture of shaft of right femur, initial encounter for closed fracture <Carl Rojo R - Last Filed: 07/09/19 15:32> (2) Right femoral shaft fracture Qualifiers: Encounter type: initial encounter Fracture type: closed Fracture morphology: spiral Fracture alignment: displaced Qualified Code(s): S72.341A - Displaced spiral fracture of shaft of right femur, initial encounter for closed fracture (3) COPD (chronic obstructive pulmonary disease) Qualifiers: COPD type: unspecified COPD Qualified Code(s): J44.9 - Chronic obstructive pulmonary disease, unspecified
--- NOTE | 2019-07-09 14:54 | Electrocardiograph Report ---
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
--- NOTE | 2019-07-09 15:09 | Event Note ---
Date of Encounter: 07/09/19 Time of Encounter: 15:06 - Cardiology Event Note 63-year-old female with crescendo angina CCS class III presents after a right femur fracture deemed high risk for surgery. Postop day one he complains of chest pain retrosternal nonradiating associated with tachycardia with worsening ST changes anterolateral. Patient currently asymptomatic chest pain-free doing well, will check cardiac enzymes to help risk stratify further. No LHC unless elevated troponins. No antiplatelet therapy unless elevated troponins. Aspirin IV ACS protocol and aspirin if okay with surgery. Stat troponins and every 63. Echocardiogram to rule out structural heart abnormalities
--- NOTE | 2019-07-09 16:22 | Electrocardiograph Report ---
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
[2019-07-09] MEDS: *HR* OxyCODONE/APAP 7.5/325 TABLET PO PRN ×2 (16:36→22:53)
--- NOTE | 2019-07-09 18:22 | Orthopedics Progress Note ---
Date of Encounter: 07/09/19 Time of Encounter: 18:21 - Assessment and Plan (1) Femur fracture, right Current Visit: Yes Status: Acute Qualifiers: Qualified Code(s): S72.91XA - Unspecified fracture of right femur, initial encounter for closed fracture Subjective Interval history: S: Thigh pain controlled Substernal chest pain improved O: Afebrile and vital signs are stable Operative extremity dressing is clean, dry, and intact. Neurovascularly intact distally A: Reduction and fixation of the right femur P: Therapy when able Dressing change tomorrow. Chest pain per hospitalist/electronics inspector. Objective Vital signs: Vital Signs Temp Pulse Resp BP Pulse Ox 07/09/19 14:05 98.8 F 96 18 118/74 96 07/09/19 11:05 99.2 F 99 18 115/79 96 07/09/19 09:22 94 07/09/19 07:18 20 93 07/09/19 07:10 97.9 F 104 15 128/85 93 07/09/19 03:40 98.3 F 97 12 118/78 93 07/09/19 02:40 97.9 F 108 15 108/75 92 07/09/19 01:40 101 12 112/77 90 07/09/19 01:10 98 F 92 10 115/74 91 07/09/19 00:40 98 F 92 11 114/79 92 07/09/19 00:27 98.0 F 93 12 123/74 91 07/09/19 00:17 97 12 124/77 91 07/09/19 00:07 98 12 121/81 92 07/08/19 23:57 99.4 F 110 16 141/81 95 07/08/19 19:40 18 92 07/08/19 18:40 98.6 F 93 14 158/90 91 Intake and Output 07/09/19 07/09/19 07/09/19 07:59 15:59 23:59 Intake Total 340 / 340 Output Total 200 / 450 250 / 450 Balance -200 / -110 90 / -110 Intake: IV Fluids 100 / 100 Ancef 2,000 MG In 0.9 % Sodium 100 / 100 Chloride 100 ML @ 200 mls/hr IVPB Q8HR VANESSA Rx#:[id number] Oral 240 / 240 Output: Catheter 200 / 450 250 / 450 Other: Meal Breakfast Percent of Meal Consumed 40% Stool Size Moderate Stool Consistency soft Stool Color Brown # Voids 1 # Bowel Movements 1 Weight 54.2 kg Patient Weight 07/09/19 23:59 Weight 54.2 kg - Labs CBC & BMP: 07/09/19 11:15 07/09/19 04:10 Labs: Abnormal lab results WBC 11.9 K/mcL (4.3-11.1) H 07/09/19 11:15 RBC 2.85 M/mcL (3.82-4.97) L 07/09/19 11:15 Hgb 9.7 g/dL (11.5-15.4) L 07/09/19 11:15 Hct 30.0 % (35.3-44.9) L 07/09/19 11:15 MCV 105.3 fL (83.0-100.0) H 07/09/19 11:15 MCH 34.0 pg (28.0-33.3) H 07/09/19 11:15 Neutrophils # 9.9 K/mcL (1.6-8.9) H 07/09/19 04:10 Lymphocytes # 0.5 K/mcL (0.6-4.6) L 07/09/19 04:10 Heparin Anti-Xa, Unfract 0.05 IU/mL (0.30-0.70) L 07/09/19 11:15 Chloride 108 mEq/L (98-107) H 07/08/19 05:21 Carbon Dioxide 22 mEq/L (23-29) L 07/09/19 04:10 BUN 25 mg/dL (8-23) H 07/09/19 04:10 BUN/Creatinine Ratio 32 (6-26) H 07/09/19 04:10 Glucose 147 mg/dL (70-105) H 07/09/19 04:10 Calculated Osmolality 302 (280-300) H 07/08/19 05:21 Calcium 7.6 mg/dL (8.6-10.3) L 07/09/19 04:10 Globulin 2.3 g/dL (2.4-3.5) L 07/08/19 05:21 Consult Discharge Plan - Plan Referrals: Alma Rosa Wilburn, [employer] MA[employer]GER [Primary Care Provider] -
[2019-07-09] MEDS: Ringers Solution, Lactated 1,000 ML IVC SCH (19:03)
[2019-07-09 20:46] LABS: Hematocrit 25.8 % (35.3-44.9); Hemoglobin 8.2 g/dL (11.5-15.4)
[2019-07-10 01:48] LABS: Basophils % 0.3 %; Eosinophils % 0.2 %; Hematocrit 25.9 % (35.3-44.9); Hemoglobin 8.5 g/dL (11.5-15.4); Immature Granulocytes % 0.6 % (0-4); Lymphocytes # 1.5 K/mcL (0.6-4.6); Lymphocytes % 15.7 %; Mean Corpuscular HGB Conc 32.8 g/dL (31.6-35.5); Mean Corpuscular Hemoglobin 34.6 pg (28.0-33.3); Mean Corpuscular Volume 105.3 fL (83.0-100.0); Mean Platelet Volume 10.8 fL (9.4-12.4); Monocytes # 1.4 K/mcL (0.0-1.3); Monocytes % 14.3 %; Neutrophils # 6.8 K/mcL (1.6-8.9); Platelet Count 149 K/mcL (140-400); Red Blood Count 2.46 M/mcL (3.82-4.97); Red Cell Distribution Width 13.4 % (11.5-14.5); Segmented Neutrophils % 68.9 %; White Blood Count 9.8 K/mcL (4.3-11.1)
[2019-07-10 02:09] LABS: BUN/Creatinine Ratio 29 (6-26); Blood Urea Nitrogen 23 mg/dL (8-23); Calcium 7.8 mg/dL (8.6-10.3); Carbon Dioxide 22 mEq/L (23-29); Chloride 103 mEq/L (98-107); Glucose 100 mg/dL (70-105); Osmolality,Calculated 280 (280-300); Potassium 4.2 mEq/L (3.5-5.1); Sodium 133 mEq/L (136-145); eGFR For African Americans > 60 (> 60); eGFR For Non-African Americans > 60 (> 60)
[2019-07-10] MEDS ORDERED: Acetaminophen IV 500 MG/50 ML INFUS..BTL IVPB ONE (03:10)
[2019-07-10] MEDS ORDERED: traMADol 50 MG TABLET PO ONE (03:47)
[2019-07-10] MEDS: Budesonide/Formoterol 160/4.5 1 PUFF INH IH SCH ×2 (07:38→20:19)
--- NOTE | 2019-07-10 08:07 | Event Note ---
Date of Encounter: 07/10/19 Time of Encounter: 07:50 Ms Jordan has had hgb drop since starting hep gtt yesterday. She had serial hgb checks overnight, orders in to contact night physician immediately with any drop in hgb and verbal communication to 07/09/19 day nurse to inform operations supervisor 2nd shift RN of the importance of ensuring hgb was drawn overnight, doctor notified of any decrease in hgb and doctor notified immediately of any bleeding, as she may need hep gtt turned off. She is a know high risk for post op hematoma, but on hep gtt for NSTEMI. I have discussed this with today's charge nurse as well as operations supervisor 2nd shift physician, all of whom were unaware of the hgb changes overnight. I have ordered for hep gtt to be stopped now. Stat hgb/hct and type and screen are ordered. Charge nurse will assist in getting these orders in place kan[place]. Close monitoring of lower ext, hgb and VS
[2019-07-10] MEDS: amLODIPine 5 MG TABLET PO SCH (08:28)
[2019-07-10] MEDS: Famotidine 20 MG TABLET PO SCH (08:28)
[2019-07-10] MEDS: Vitamin B Complex/Vit C/Vit E 1 EACH TABLET PO SCH (08:29)
[2019-07-10] MEDS: *HR* OxyCODONE/APAP 7.5/325 TABLET PO PRN ×3 (08:31→21:44)
--- NOTE | 2019-07-10 08:48 | Internal Med Progress Note ---
<Yumi Cornejo - Last Filed: 07/10/19 12:41> Hospitalist Progress Note - Encounter Date of Encounter: 07/10/19 - Exam Vitals: Temp Pulse Resp BP Pulse Ox 98.3 F 76 20 94/57 90 07/10/19 11:30 07/10/19 11:30 07/10/19 11:30 07/10/19 11:30 07/10/19 11:30 - Assessment and Plan (1) COPD (chronic obstructive pulmonary disease) Current Visit: No Status: Chronic (2) Right femoral shaft fracture Current Visit: Yes Status: Acute (3) Decreased GFR Current Visit: Yes Status: Acute (4) Decreased potassium in the blood Current Visit: Yes Status: Acute (5) Tobacco abuse Current Visit: Yes Status: Chronic (6) Uses alcohol occasionally Current Visit: Yes Status: Chronic - Time Spent with Patient Total time spent is greater than 50% in coordination of care (as documented) at patient's floor/unit and/or counseling patient: Internal Medicine: Result - Labs CBC & Chem 7: 07/10/19 08:13 07/10/19 01:11 Labs: Short CBC 07/09/19 07/10/19 07/10/19 Range/Units 20:34 01:11 08:13 WBC 9.8 (4.3-11.1) K/mcL Hgb 8.2 L D 8.5 L 8.0 L (11.5-15.4) g/dL Hct 25.8 L 25.9 L 25.0 L (35.3-44.9) % Plt Count 149 (140-400) K/mcL Neutrophils # 6.8 (1.6-8.9) K/mcL BMP 07/10/19 01:11 Sodium 133 L Potassium 4.2 Chloride 103 Carbon Dioxide 22 L BUN 23 Creatinine 0.79 Glucose 100 Calcium 7.8 L Cardiac Enzymes 07/09/19 07/09/19 Range/Units 14:26 20:34 Troponin I < 0.03 < 0.03 (< 0.04) ng/mL - ABG Interpretation ABG results: PT/INR, D-dimer PT 11.2 Seconds (9.4-12.1) 07/09/19 11:15 Consult Discharge Plan - Plan Referrals: Alma Rosa Wilburn, FLIGHT SURVEYOR [Primary Care Provider] - - Attending Attestation The history, physical exam, and medical decision making was performed by the medical student either while I was physically present and actively involved or I personally re-performed the exam and medical decision making. I have verified the accuracy of the medical student's documentation with regards to the history, physical exam findings, and medical decision making. Ms Jordan requires admission for femur fracture requiring surgical intervention awake, eating breakfast that nursing ordered for her, having no further chest pain, denies sob. no pain in leg. we discussed hgb drop risk v benefit on hep gtt treatment pending further cards recs and decision to stop. If she should require blood she would be agreeable. if she notes leg pain, change in color or bleeding she will notify staff immediately. gen- alert, awake,appears stated age, cv- reg rate and rhythm, normal s1,s2, no murmurs appreciated, no le edema lungs- ctabl, no wheezing, rhonchi or crackles, normal resp effort skin- right leg dressing c/d/i, no visible ecchymosis, no palpable hematoma neuro- AAOx3 Right Femoral Shaft fracture- s/p ORIF/nail 07/08, prn pain control, post op care as per ortho, monitoring for s/s/ of hematoma Unstable Angina/NSTEMI Non obstructive CAD hx -cards closely following last 24 hrs, serial trops neg, ekgs without further change, no plain free -cards is signing off, outpt testing and follow up, cont sharri emed regimen, off hep gtt -asa will be 325 mg daily starting tomorrow as per ortho recs for vte ppx, in upcoming weeks she will be able to change back to 81 mg daily -cont asa, statin, bb Etoh Use- pt report of use seems odd and she limits details she gives- empirically on ciwa protocol, no ativan needs thus far Acute post operative blood loss anemia, worsened in setting of hep gtt, without active bleeding or hemodynamic instability- off hep gtt now, serial hgbs today, goal is 8, transfuse prbc if less than hgb 8 given cardiac sxs further dx and plan as noted by resident pt eval pending <Carl Rojo - Last Filed: 07/10/19 16:35> Hospitalist Progress Note - Encounter Date of Encounter: 07/10/19 Time of Encounter: 08:48 - Subjective Interval History: Pt up in bed eating breakfast when I arrived. States that she has some shortness of breath when getting up to use the restroom but denying any CP or SOB at rest. She states that her pain is under control and has no signs of bleeding. Denies melena, hematuria, abdominal pains, diarrhea, or constipation. - Exam Vitals: Temp Pulse Resp BP Pulse Ox 98.5 F 98 20 150/84 91 07/10/19 07:00 07/10/19 07:00 07/10/19 07:39 07/10/19 07:00 07/10/19 07:39 Exam: Gen: AAOx3, Pleasant, NAD CVS: S1, S2, regular rhythm Lungs: Expiratory wheezing, normal effort breathing Abdominal: soft, nontender, bowel sounds present Skin: bandage on RLE over surgical site; dry and clean, no signs of bleeding Extremities: right femur in splint; neurovascular and motor function intact LE B/L - Assessment and Plan (1) Chest pain Current Visit: Yes Status: Acute Assessment and Plan: -EKG performed 07/[address] changes in lateral leads that were borderline -Admits to exertional angina episode last week that was epigastric in nature non radiating and accompanied with SOB. -Pt has known history of CAD; C performed Aug 2017 showed mild to moderate nonobstructive CAD. -Echo performed 07/08 showed normal right/left ventricular function and EF 60-65% -Chemical stress test was cancelled due to pt intolerance to pain; decision was made to continue with surgery due to severity of injury -Pt began c/o crushing substernal chest pain accompanied with SOB, tachycardia, labored breathing during physical exam 07/09 -Was given ASA, titrated O2 from 3L to 6L. Stat EKG ordered -Will start ASA 81mg 07/10 along with continuing statin and beta nina -Low dose ACS heparin protocol begun 07/09 -Possible NSTEMI; cardiology has been consulted -07/10: Heparin dc, cardiology input to hold on [facility] unless troponins elevate -Cardiology signed off; currently experiencing no chest pain and pt wants to have chemical stress test performed outpatient -Will start 325mg ASA 07/11 for VTE prophylaxis; can dc and begin 81mg ASA in 10 days. -Follow cardiology recs; monitor hgb and tranfuse 1 unit of RBC if falls under 8. -Serial hgb check (2) Right femoral shaft fracture Current Visit: Yes Status: Acute Assessment and Plan: -Pt was sitting in chair at home talking on phone when sudden onset of pain in right leg -Denies any trauma, losing consciousness, striking head, falls, or anticoagulant use -ER obtained Xray of right femur which showed displaced proximal right femoral shaft fx -Pt placed in hare traction splint, internet consultant ortho surgeon consulted -Pt admitted to hospital, ortho has seen pt -Surgery 07/08 ORIF of right proximal femoral shaft fx -Pain controlled with PRN pain meds -Monitor for signs of blood loss -Dressing/splint management per ortho recs -Continue to work with PT (3) Anemia Current Visit: Yes Status: Acute Assessment and Plan: -hgb dropped from 10.4-9.7 07/09 -hgb 8.5 07/10 -Currently asymptomatic -Transfuse 1 unit PRBC 07/10 in light of cardiac hx (4) COPD (chronic obstructive pulmonary disease) Current Visit: No Status: Chronic Assessment and Plan: -Known history of COPD; on 2L of oxygen at home -This is a chronic issue; no current acute exacerbation -O2 was titrated to 6L 07/09 in setting of suspected NSTEMI -Back on 3L O2 due to resolution of chest pain -Continue home meds (5) Tobacco abuse Current Visit: Yes Status: Chronic Assessment and Plan: -Smoking cessation discussed; current 1/2 pack day smoker (6) Uses alcohol occasionally Current Visit: Yes Status: Chronic DVT Prophylaxis: Will begin 325mg ASA 07/11 for vte prophylaxis. Can dc 325 and begin 81mg ASA PO in 10 days - Time Spent with Patient Total time spent is greater than 50% in coordination of care (as documented) at patient's floor/unit and/or counseling patient: Internal Medicine: Result - Labs CBC & Chem 7: 07/10/19 14:27 07/10/19 01:11 Labs: Short CBC 07/09/19 07/09/19 07/10/19 Range/Units 11:15 20:34 01:11 WBC 11.9 H 9.8 (4.3-11.1) K/mcL Hgb 9.7 L 8.2 L D 8.5 L (11.5-15.4) g/dL Hct 30.0 L 25.8 L 25.9 L (35.3-44.9) % Plt Count 181 149 (140-400) K/mcL Neutrophils # 6.8 (1.6-8.9) K/mcL 07/10/19 Range/Units 08:13 WBC (4.3-11.1) K/mcL Hgb 8.0 L (11.5-15.4) g/dL Hct 25.0 L (35.3-44.9) % Plt Count (140-400) K/mcL Neutrophils # (1.6-8.9) K/mcL BMP 07/10/19 01:11 Sodium 133 L Potassium 4.2 Chloride 103 Carbon Dioxide 22 L BUN 23 Creatinine 0.79 Glucose 100 Calcium 7.8 L Cardiac Enzymes 07/09/19 07/09/19 07/09/19 Range/Units 09:28 14:26 20:34 Troponin I < 0.03 < 0.03 < 0.03 (< 0.04) ng/mL - ABG Interpretation ABG results: PT/INR, D-dimer PT 11.2 Seconds (9.4-12.1) 07/09/19 11:15 - Impressions Impressions Chest X-Ray 07/09/19 09:25 IMPRESSION: 1. No radiographic finding to account for patient's chest pain and shortness of breath. D/ / Robert Carroll MD / Robert Carroll MD Interpreting Provider: Robert Carroll MD <Yumi Cornejo - Last Filed: 07/10/19 12:41> (1) COPD (chronic obstructive pulmonary disease) Qualifiers: COPD type: unspecified COPD Qualified Code(s): J44.9 - Chronic obstructive pulmonary disease, unspecified (2) Right femoral shaft fracture Qualifiers: Encounter type: initial encounter Fracture type: closed Fracture morphology: spiral Fracture alignment: displaced Qualified Code(s): S72.341A - Displaced spiral fracture of shaft of right femur, initial encounter for closed fracture <Carl Rojo R - Last Filed: 07/10/19 16:35> (1) Chest pain Qualifiers: Qualified Code(s): R07.9 - Chest pain, unspecified (2) Right femoral shaft fracture Qualifiers: Encounter type: initial encounter Fracture type: closed Fracture morphology: spiral Fracture alignment: displaced Qualified Code(s): S72.341A - Displaced spiral fracture of shaft of right femur, initial encounter for closed fracture (3) Anemia Qualifiers: Anemia type: unspecified type Qualified Code(s): D64.9 - Anemia, unspecified (4) COPD (chronic obstructive pulmonary disease) Qualifiers: COPD type: unspecified COPD Qualified Code(s): J44.9 - Chronic obstructive pulmonary disease, unspecified
[2019-07-10] MEDS ORDERED: Aspirin Enteric Coated 81 MG Tablet PO SCH (09:00)
--- NOTE | 2019-07-10 09:42 | Cardiology Progress Note ---
Date of Encounter: 07/10/19 Time of Encounter: 09:20 Assessment and Plan (1) Femur fracture, right Current Visit: Yes Status: Acute Per Cardiology: s/p: Open reduction and femoral nailing of the right femoral shaft. Management per primary service. Qualifiers: Qualified Code(s): S72.91XA - Unspecified fracture of right femur, initial encounter for closed fracture (2) Chest pain Current Visit: Yes Status: Acute Per Cardiology: Currently chest pain-free. She reports CP and ALVARADO unchanged from her baseline. No acute changes. Troponins negative 5. Echo: Impressions: LVEF 60-65%. Grossly normal right ventricular structure and function. Estimated RA pressure is 3 mmHg. Left Ventricular Wall Motion: Rest Echo Findings All wall segments showed normal motion. Patient ate this am. I had lengthy discussion with patient regarding potential stress, however patient could not complete stress test preoperatively d/t pain and trouble laying flat. Ate this am. I discussed possible stress test tomorrow, however patient still concerned with ability to complete. Patient desires to f/u as outpatient as already scheduled and re-evaluate need and her ability to complete. On asa, statin, BB. Cardiology will s/o, f/u as planned, all questions answered, re-consult PRN. Discussed with Dr. Lundy. Qualifiers: Qualified Code(s): R07.9 - Chest pain, unspecified Discussion w patient/family: The assessment and plan as outlined above was discussed with the patient and/or family members who expressed understanding and agreement. All questions were answered. Thank you for involving us in the care of your patient. Please call with any questions. Subjective Principal diagnosis: CP Interval history: Patient denies any chest pain currently. Did report some dyspnea on exertion walking this morning. She reports short of breath about baseline. She does indicate her intermittent chest pain is about baseline as well. Objective Vital Signs, Last 4 Hours Temp Pulse Resp BP Pulse Ox 07/10/19 07:39 20 91 07/10/19 07:00 98.5 F 98 20 150/84 93 General: Conversant, No Apparent Distress HEENT: Atraumatic, Normocephaly, Mucus Membranes Moist Neck: No JVD, Normal carotid pulses Cardiac: Reg Rate and Rhythm, Normal S1 and S2, No Murmur Lungs: Normal Breath Sounds, No Wheeze, Rales, Rhonchi Neuro: Alert and responsive, No focal deficits noted Abdomen: Soft, Non-Tender Skin: No rashes noted on visualized skin Musculoskeletal: No Chest Wall Tenderness Extremities: No Clubbing, No Cyanosis, No Edema, Normal Pulses Results 07/10/19 08:13 07/10/19 01:11 Lab Results Laboratory Tests 07/08/19 07/08/19 07/09/19 05:21 11:46 09:28 Hgb Hct Creatinine Est GFR (Non-Af Amer) Troponin I < 0.03 < 0.03 < 0.03 07/09/19 07/09/19 07/10/19 14:26 20:34 01:11 Hgb 8.5 L Hct 25.9 L Creatinine Est GFR (Non-Af Amer) Troponin I < 0.03 < 0.03 07/10/19 01:11 Hgb Hct Creatinine 0.79 Est GFR (Non-Af Amer) > 60 Troponin I Impressions Chest X-Ray 07/09/19 09:25 IMPRESSION: 1. No radiographic finding to account for patient's chest pain and shortness of breath. D/ / Robert Carroll MD / Robert Carroll MD Interpreting Provider: Robert Carroll MD Active Medications Acetaminophen (Tylenol) 650 mg PO Q6HR PRN PRN Reason: mild to moderate pain Stop: 01/07/20 09:45 Albuterol Sulfate (Proventil Inhaler) 2 puff IH Q4HR PRN PRN Reason: Shortness Of Breath Stop: 01/07/20 14:09 Last Admin: 07/09/19 07:20 Dose: 2 puff Documented by: Amlodipine Besylate (Norvasc) 5 mg PO DAILY [facility]; Protocol Stop: 01/08/20 09:01 Last Admin: 07/10/19 08:28 Dose: 5 mg Documented by: Aspirin (Aspirin Ec) 81 mg PO DAILY [facility] Stop: 01/09/20 09:01 Last Admin: 07/10/19 08:29 Dose: 81 mg Documented by: Atorvastatin Calcium (Lipitor) 10 mg PO DAILY [facility] Stop: 01/08/20 09:01 Last Admin: 07/10/19 08:28 Dose: 10 mg Documented by: Budesonide/Formoterol Fumarate (Symbicort) 2 puff IH BIDR [facility]; Protocol Stop: 01/07/20 22:01 Last Admin: 07/10/19 07:38 Dose: 2 puff Documented by: Famotidine (Pepcid) 20 mg PO DAILY [facility] Stop: 01/08/20 09:01 Last Admin: 07/10/19 08:28 Dose: 20 mg Documented by: Lactated Ringer's (Lactated Ringers) 1,000 mls @ 50 mls/hr IVC .Q20H [facility] Stop: 01/08/20 18:31 Last Admin: 07/09/19 19:03 Dose: 50 mls/hr Documented by: Levothyroxine Sodium (Synthroid) 75 mcg PO 0600 [facility] Stop: 01/08/20 06:01 Last Admin: 07/10/19 05:02 Dose: 75 mcg Documented by: Lorazepam (Ativan) 1 mg IVP Q1H PRN PRN Reason: Alcohol Withdrawal Stop: 01/07/20 14:08 Lorazepam (Ativan) 2 mg IVP Q4HR PRN PRN Reason: CIWA Score of 10-21 Stop: 01/07/20 14:08 Lorazepam (Ativan) 4 mg IVP Q4HR PRN PRN Reason: CIWA Score of 22-45 Stop: 01/07/20 14:08 Megestrol Acetate (Megace) 40 mg PO DAILY [facility] Stop: 01/08/20 09:01 Last Admin: 07/10/19 08:29 Dose: 40 mg Documented by: Metoprolol Tartrate (Lopressor) 5 mg IVP Q6HR PRN PRN Reason: Tachyarrhythmias Stop: 01/07/20 10:11 Metoprolol Tartrate (Lopressor) 50 mg PO BID [facility] Stop: 01/07/20 21:01 Last Admin: 07/10/19 08:28 Dose: 50 mg Documented by: Naloxone HCl (Narcan) 0.4 mg IVP Q2MPRN PRN PRN Reason: SEE COMMENTS Stop: 01/07/20 05:00 Oxycodone/Acetaminophen (Percocet 7.5/325) 1 each PO Q6HR PRN PRN Reason: Severe Pain Stop: 01/07/20 09:55 Last Admin: 07/10/19 08:31 Dose: 1 each Documented by: Sertraline HCl (Zoloft) 25 mg PO DAILY [facility] Stop: 01/08/20 09:01 Last Admin: 07/10/19 08:28 Dose: 25 mg Documented by: Vitamin B Complex/Vit C/Vit E (Stresstab) 1 each PO DAILY [facility]; Protocol Stop: 01/08/20 09:01 Last Admin: 07/10/19 08:29 Dose: 1 each Documented by: - Imaging and Cardiology Echo: report reviewed Consult Discharge Plan - Plan Referrals: Alma Rosa Wilburn, NUTRITION ASSOCIATE [Primary Care Provider] -
[2019-07-10] MEDS: Acetaminophen 325 MG TABLET PO PRN (13:55)
[2019-07-10 14:50] LABS: Hematocrit 24.2 % (35.3-44.9); Hemoglobin 7.7 g/dL (11.5-15.4)
[2019-07-10] MEDS: Ringers Solution, Lactated 1,000 ML IVC SCH (15:24)
--- NOTE | 2019-07-10 16:17 | Orthopedics Progress Note ---
Date of Encounter: 07/10/19 Time of Encounter: 12:40 - Assessment and Plan (1) Femur fracture, right Current Visit: Yes Status: Acute POD#2 s/p right hip TFN 07/08/19 Continue to participate with therapy as able, WBAT Dressings to right hip to be changed today. Ice to hip as needed. H/H continues to slowly decline - now 8.0/25.0 - continue monitoring but no active drainage noted from hip incision at time of exam. hospitalist/cardiology on board for medical management DVT prophylaxis per Dr. Abdalla: recommend aspirin 325mg daily unless cardiology recommends differently Follow up in AB office at [facility] for reevaluation. Qualifiers: Qualified Code(s): S72.91XA - Unspecified fracture of right femur, initial encounter for closed fracture Subjective Principal diagnosis: s/p right hip TFN 07/08 Interval history: Patient states she is feeling well today, hip is still sore. Tried to participate as much as she could with therapy this morning. Denies any new concerns. No chest pain currently. Objective Vital signs: Vital Signs Temp Pulse Resp BP Pulse Ox 07/10/19 15:25 98.0 F 102 20 104/63 90 07/10/19 15:22 81 104/63 07/10/19 11:30 98.3 F 76 20 94/57 90 07/10/19 07:39 20 91 07/10/19 07:00 98.5 F 98 20 150/84 93 07/10/19 03:07 98.3 F 106 20 115/76 91 07/09/19 22:53 99.2 F 98 22 100/62 92 07/09/19 20:56 90 93 07/09/19 18:53 98.7 F 20 90 151/70 Intake and Output 07/10/19 07/10/19 07/10/19 07:59 15:59 23:59 Intake Total 62.9 / 1382.9 1320 / 1382.9 Output Total 275 / 275 Balance -212.1 / 1107.9 1320 / 1107.9 Intake: IV Fluids 62.9 / 1062.9 1000 / 1062.9 Heparin 25,000 UNIT/250 ML D5W 62.9 / 62.9 25,000 unit In 250 ml @ 12 UNIT /KG/HR 6.504 mls/hr IVC .Q24H [facility] Rx#:[id number] Lactated Ringers 1,000 ML @ 50 1000 / 1000 mls/hr IVC .Q20H [facility] Rx#: [id number] Oral 0 / 320 320 / 320 Output: Urine 275 / 275 Other: Meal Lunch Percent of Meal Consumed 30% # Voids 1 2 Weight 54.3 kg Patient Weight 07/10/19 23:59 Weight 54.3 kg Incision: clean and dry (dressings to right hip are c/d/i with no visible drainage or erythema. no calf tenderness to palpation, good dorsiflexion of foot, sensation intact distally) - Labs CBC & BMP: 07/10/19 14:27 07/10/19 01:11 Labs: Abnormal lab results WBC 11.9 K/mcL (4.3-11.1) H 07/09/19 11:15 RBC 2.46 M/mcL (3.82-4.97) L 07/10/19 01:11 Hgb 7.7 g/dL (11.5-15.4) L 07/10/19 14:27 Hct 24.2 % (35.3-44.9) L 07/10/19 14:27 MCV 105.3 fL (83.0-100.0) H 07/10/19 01:11 MCH 34.6 pg (28.0-33.3) H 07/10/19 01:11 Neutrophils # 9.9 K/mcL (1.6-8.9) H 07/09/19 04:10 Lymphocytes # 0.5 K/mcL (0.6-4.6) L 07/09/19 04:10 Monocytes # 1.4 K/mcL (0.0-1.3) H 07/10/19 01:11 Heparin Anti-Xa, Unfract 0.25 IU/mL (0.30-0.70) L 07/09/19 18:40 Sodium 133 mEq/L (136-145) L 07/10/19 01:11 Chloride 108 mEq/L (98-107) H 07/08/19 05:21 Carbon Dioxide 22 mEq/L (23-29) L 07/10/19 01:11 BUN 25 mg/dL (8-23) H 07/09/19 04:10 BUN/Creatinine Ratio 29 (6-26) H 07/10/19 01:11 Glucose 147 mg/dL (70-105) H 07/09/19 04:10 Calculated Osmolality 302 (280-300) H 07/08/19 05:21 Calcium 7.8 mg/dL (8.6-10.3) L 07/10/19 01:11 Globulin 2.3 g/dL (2.4-3.5) L 07/08/19 05:21 Crossmatch See Detail 07/10/19 08:13 Consult Discharge Plan - Plan Referrals: Alma Rosa Wilburn, TALENT MANAGER [Primary Care Provider] -
[2019-07-10] MEDS ORDERED: 0.9 % Sodium Chloride 250 ML ONE (16:34)
[2019-07-10] MEDS ORDERED: Nitroglycerin 0.4 MG TAB.SUBL SL PRN (16:34)
[2019-07-10 21:16] LABS: Hematocrit 28.5 % (35.3-44.9)
[2019-07-10 21:18] LABS: Hemoglobin 9.4 g/dL (11.5-15.4)
[2019-07-11 02:51] LABS: Basophils % 0.3 %; Eosinophils # 0.1 K/mcL (0.0-0.6); Eosinophils % 1.2 %; Hematocrit 26.8 % (35.3-44.9); Hemoglobin 8.8 g/dL (11.5-15.4); Immature Granulocytes % 0.5 % (0-4); Lymphocytes # 1.6 K/mcL (0.6-4.6); Lymphocytes % 18.1 %; Mean Corpuscular HGB Conc 32.8 g/dL (31.6-35.5); Mean Corpuscular Hemoglobin 33.6 pg (28.0-33.3); Mean Corpuscular Volume 102.3 fL (83.0-100.0); Monocytes # 1.3 K/mcL (0.0-1.3); Monocytes % 14.5 %; Neutrophils # 5.8 K/mcL (1.6-8.9); Nucleated Red Blood Cells 0.5 /100 WBC (0); Platelet Count 135 K/mcL (140-400); Red Blood Count 2.62 M/mcL (3.82-4.97); Red Cell Distribution Width 14.9 % (11.5-14.5); Segmented Neutrophils % 65.4 %; White Blood Count 8.8 K/mcL (4.3-11.1)
[2019-07-11] MEDS: Acetaminophen 325 MG TABLET PO PRN ×4 (02:57→22:43)
[2019-07-11 03:12] LABS: BUN/Creatinine Ratio 22 (6-26); Blood Urea Nitrogen 15 mg/dL (8-23); Calcium 8.2 mg/dL (8.6-10.3); Carbon Dioxide 24 mEq/L (23-29); Chloride 102 mEq/L (98-107); Glucose 101 mg/dL (70-105); Osmolality,Calculated 279 (280-300); Sodium 134 mEq/L (136-145); eGFR For African Americans > 60 (> 60); eGFR For Non-African Americans > 60 (> 60)
[2019-07-11] MEDS: *HR* OxyCODONE/APAP 7.5/325 TABLET PO PRN ×3 (05:55→18:15)
[2019-07-11] MEDS: Budesonide/Formoterol 160/4.5 1 PUFF INH IH SCH ×2 (07:43→21:51)
--- NOTE | 2019-07-11 07:52 | Internal Med Progress Note ---
<Yumi Cornejo - Last Filed: 07/11/19 11:37> Hospitalist Progress Note - Encounter Date of Encounter: 07/11/19 - Exam Vitals: Temp Pulse Resp BP Pulse Ox 98 F 76 16 98/56 93 07/11/19 11:16 07/11/19 11:16 07/11/19 11:16 07/11/19 11:16 07/11/19 11:16 - Assessment and Plan (1) COPD (chronic obstructive pulmonary disease) Current Visit: No Status: Chronic (2) Right femoral shaft fracture Current Visit: Yes Status: Acute (3) Decreased GFR Current Visit: Yes Status: Acute (4) Decreased potassium in the blood Current Visit: Yes Status: Acute (5) Tobacco abuse Current Visit: Yes Status: Chronic (6) Uses alcohol occasionally Current Visit: Yes Status: Chronic - Time Spent with Patient Total time spent is greater than 50% in coordination of care (as documented) at patient's floor/unit and/or counseling patient: Internal Medicine: Result - Labs CBC & Chem 7: 07/11/19 08:36 07/11/19 02:39 Labs: Short CBC 07/10/19 07/10/19 07/11/19 Range/Units 14:27 20:55 02:39 WBC 8.8 (4.3-11.1) K/mcL Hgb 7.7 L 9.4 L D 8.8 L (11.5-15.4) g/dL Hct 24.2 L 28.5 L 26.8 L (35.3-44.9) % Plt Count 135 L (140-400) K/mcL Neutrophils # 5.8 (1.6-8.9) K/mcL 07/11/19 Range/Units 08:36 WBC (4.3-11.1) K/mcL Hgb 9.4 L (11.5-15.4) g/dL Hct 28.8 L (35.3-44.9) % Plt Count (140-400) K/mcL Neutrophils # (1.6-8.9) K/mcL BMP 07/11/19 02:39 Sodium 134 L Potassium 4.0 Chloride 102 Carbon Dioxide 24 BUN 15 Creatinine 0.67 Glucose 101 Calcium 8.2 L - ABG Interpretation ABG results: PT/INR, D-dimer PT 11.2 Seconds (9.4-12.1) 07/09/19 11:15 Consult Discharge Plan - Plan Referrals: Alma Rosa Wilburn, ENGINEERING PROGRAMMER [Primary Care Provider] - - Attending Attestation I examined this patient and my medical decision-making was reviewed with the Resident Physician Dr Espino. I agree with the documented findings, d isposition and treatment plan as described except to the extent set forth below. Ms Jordan is admitted for femur fracture requiring surgical intervention awake, eating breakfast, no cp, sob with exertion, right leg pain is controlled. She again adamantly refuses the recommended snf placement. She insists she dispo back to home. In prep for this she is instructed she will have to be out of bed today with increased mobility so she can assess if this is a feasible idea. She arees and RN and BOARD CERTIFIED ARTS THERAPIST are going to assist with this goal. gen- alert, awake,appears stated age, cv- reg rate and rhythm, normal s1,s2, no le edema lungs- ctabl, no wheezing, rhonchi or crackles, normal resp effort skin- right leg dressing c/d/i, cannot appreciate hematoma neuro- AAOx3 Right Femoral Shaft fracture- s/p ORIF/nail 07/08, post op care as per ortho, monitoring for s/s of hematoma, refusing snf, increase activity today Possible NSTEMI, sxs resolved Non obstructive CAD hx pt refused stress test due to not being able to tolerate with leg pain both pre and post op -cappreciate cards input ,outpt testing and follow up, cont home med regimen -asa will be 325 mg daily for vte ppx, in upcoming weeks she will be able to change back to 81 mg daily Acute post operative blood loss anemia, worsened in setting of hep gtt, without active bleeding or hemodynamic instability- serial hgbs today to confirm stability further dx and plan as noted by resident <Duane Espino - Last Filed: 07/11/19 16:59> Hospitalist Progress Note - Encounter Date of Encounter: 07/11/19 Time of Encounter: 07:52 - Subjective Interval History: No acute events overnight, patient complaining of shortness of breath on exert ion this morning. She denies any chest pain and states her postoperative pain is well controlled. - Exam Vitals: Temp Pulse Resp BP Pulse Ox 98.4 F 86 18 108/67 96 07/11/19 06:25 07/11/19 06:25 07/11/19 06:25 07/11/19 06:25 07/11/19 06:25 Exam: Gen: AAOx3, Ple[place], NAD CVS: S1, S2, regular rate and rhythm Lungs: Clear to auscultation bilaterally Abdominal: soft, nontender, bowel sounds present Skin: bandage on RLE over surgical site; dry and clean, no signs of bleeding Extremities: neurovascular and motor function intact LE B/L - Assessment and Plan (1) Anemia Current Visit: Yes Status: Acute Assessment and Plan: Acute postoperative blood loss anemia Worsened in setting of heparin drip, without signs of active bleeding such as hematoma or melena Patient has remained hemodynamically stable Heparin drip discontinued, hemoglobin trending We will transfuse for hemoglobin less than 8 in setting of coronary artery disease (2) CAD (coronary artery disease) Current Visit: Yes Status: Chronic Assessment and Plan: Patient was originally admitted for right femoral shaft fracture Complicated by chest pain in setting of known CAD Radiology did evaluate the patient, stress test canceled due to hip fracture and unable to comply with test She did have repeat episodes of chest pain, EKG did demonstrate changes concerning for NSTEMI Aspirin and heparin drip were initiated and continued, chest pain resolved Cardiology reevaluated and recommended outpatient follow-up, heparin drip discontinued and aspirin 325 continued for DVT prophylaxis We will transition back to aspirin 81 mg daily after discharge, continue statin and beta nina Patient has since had no further chest pain (3) Right femoral shaft fracture Current Visit: Yes Status: Acute Assessment and Plan: Patient presented with right femoral shaft fracture Open reduction internal fixation performed by [facility] surgery on 07/08/19 Patient currently recovering and working with rehabilitation Rehabilitation recommending [facility] facility, patient adamantly denies Plan for discharge to home with home health physical therapy once medically stable (4) COPD (chronic obstructive pulmonary disease) Current Visit: No Status: Chronic Assessment and Plan: History of COPD with home O2 use of 2 L, not in current exacerbation Patient requiring above baseline oxygen due to anemia and physical exertion/deconditioning We will continue bronchodilators and oxygen as needed DVT Prophylaxis: Will begin 325mg ASA 07/11 for vte prophylaxis. Can dc 325 and begin 81mg ASA PO in 10 days - Time Spent with Patient Total time spent is greater than 50% in coordination of care (as documented) at patient's floor/unit and/or counseling patient: Internal Medicine: Result - Labs CBC & Chem 7: 07/11/19 11:58 07/11/19 02:39 Labs: Short CBC 07/10/19 07/10/19 07/10/19 Range/Units 08:13 14:27 20:55 WBC (4.3-11.1) K/mcL Hgb 8.0 L 7.7 L 9.4 L D (11.5-15.4) g/dL Hct 25.0 L 24.2 L 28.5 L (35.3-44.9) % Plt Count (140-400) K/mcL Neutrophils # (1.6-8.9) K/mcL 07/11/19 Range/Units 02:39 WBC 8.8 (4.3-11.1) K/mcL Hgb 8.8 L (11.5-15.4) g/dL Hct 26.8 L (35.3-44.9) % Plt Count 135 L (140-400) K/mcL Neutrophils # 5.8 (1.6-8.9) K/mcL BMP 07/11/19 02:39 Sodium 134 L Potassium 4.0 Chloride 102 Carbon Dioxide 24 BUN 15 Creatinine 0.67 Glucose 101 Calcium 8.2 L - ABG Interpretation ABG results: PT/INR, D-dimer PT 11.2 Seconds (9.4-12.1) 07/09/19 11:15 <Yumi Cornejo - Last Filed: 07/11/19 11:37> (1) COPD (chronic obstructive pulmonary disease) Qualifiers: COPD type: unspecified COPD Qualified Code(s): J44.9 - Chronic obstructive pulmonary disease, unspecified (2) Right femoral shaft fracture Qualifiers: Encounter type: initial encounter Fracture type: closed Fracture morphology: spiral Fracture alignment: displaced Qualified Code(s): S72.341A - Displaced spiral fracture of shaft of right femur, initial encounter for closed fracture <Duane Espino - Last Filed: 07/11/19 16:59> (1) Anemia Qualifiers: Anemia type: unspecified type Qualified Code(s): D64.9 - Anemia, unspecified (2) CAD (coronary artery disease) Qualifiers: Coronary Disease-Associated Artery/Lesion type: [place] artery [place] vs. transplanted heart: [place] heart Associated angina: without angina Qualified Code(s): I25.10 - Atherosclerotic heart disease of [place] coronary artery without angina pectoris (3) Right femoral shaft fracture Qualifiers: Encounter type: initial encounter Fracture type: closed Fracture morphology: spiral Fracture alignment: displaced Qualified Code(s): S72.341A - Displaced spiral fracture of shaft of right femur, initial encounter for closed fracture (4) COPD (chronic obstructive pulmonary disease) Qualifiers: COPD type: unspecified COPD Qualified Code(s): J44.9 - Chronic obstructive pulmonary disease, unspecified
[2019-07-11] MEDS: Vitamin B Complex/Vit C/Vit E 1 EACH TABLET PO SCH (08:45)
[2019-07-11] MEDS: Famotidine 20 MG TABLET PO SCH (08:45)
[2019-07-11] MEDS: amLODIPine 5 MG TABLET PO SCH (08:45)
[2019-07-11] MEDS: Aspirin 325 MG TABLET PO SCH (08:45)
[2019-07-11 08:51] LABS: Hematocrit 28.8 % (35.3-44.9); Hemoglobin 9.4 g/dL (11.5-15.4)
[2019-07-11 12:21] LABS: Hematocrit 26.6 % (35.3-44.9); Hemoglobin 8.6 g/dL (11.5-15.4)
--- NOTE | 2019-07-11 16:37 | Orthopedics Progress Note ---
Date of Encounter: 07/11/19 Time of Encounter: 16:34 Subjective Principal diagnosis: s/p right hip TFN 07/08 Interval history: Patient is comfortable She was unable to do much therapy today due to being winded from going to the bathroom Right lower extremity: Hip and thigh dressings were changed and a clean dry intact Bilateral calves are soft and nontender, grossly neurovascular intact distally Assessment: Postoperative #3, stable Plan: Patient declines going to rehabilitation facility She does not appear safe for discharge at this time Continue OT/PT Continue DVT prophylaxis Recommend social work involvement Objective Vital signs: Vital Signs Temp Pulse Resp BP Pulse Ox 07/11/19 14:00 97.8 F 83 16 114/67 92 07/11/19 12:10 111/68 07/11/19 11:16 98 F 76 16 98/56 93 07/11/19 07:43 18 92 07/11/19 06:25 98.4 F 86 18 108/67 96 07/11/19 04:18 98.7 F 82 18 108/52 94 07/10/19 23:00 97.7 F 87 18 109/71 94 07/10/19 20:19 18 90 07/10/19 20:14 92 07/10/19 20:07 98.3 F 86 16 95/54 92 07/10/19 17:03 97.9 F 86 16 89/55 88 07/10/19 16:48 98.0 F 83 16 95/58 88 Intake and Output 07/11/19 07/11/19 07/11/19 07:59 15:59 23:59 Intake Total 480 / 480 Balance 480 / 480 Intake: Oral 480 / 480 Other: Meal Breakfast Percent of Meal Consumed 90% # Voids 1 Weight 50 kg Patient Weight 07/11/19 23:59 Weight 50 kg - Labs CBC & BMP: 07/11/19 11:58 07/11/19 02:39 Labs: Abnormal lab results WBC 11.9 K/mcL (4.3-11.1) H 07/09/19 11:15 RBC 2.62 M/mcL (3.82-4.97) L 07/11/19 02:39 Hgb 8.6 g/dL (11.5-15.4) L 07/11/19 11:58 Hct 26.6 % (35.3-44.9) L 07/11/19 11:58 MCV 102.3 fL (83.0-100.0) H 07/11/19 02:39 MCH 33.6 pg (28.0-33.3) H 07/11/19 02:39 RDW 14.9 % (11.5-14.5) H 07/11/19 02:39 Plt Count 135 K/mcL (140-400) L 07/11/19 02:39 Neutrophils # 9.9 K/mcL (1.6-8.9) H 07/09/19 04:10 Lymphocytes # 0.5 K/mcL (0.6-4.6) L 07/09/19 04:10 Monocytes # 1.4 K/mcL (0.0-1.3) H 07/10/19 01:11 Nucleated RBCs/100 WBC 0.5 /100 WBC (0) H 07/11/19 02:39 Heparin Anti-Xa, Unfract 0.25 IU/mL (0.30-0.70) L 07/09/19 18:40 Sodium 134 mEq/L (136-145) L 07/11/19 02:39 Chloride 108 mEq/L (98-107) H 07/08/19 05:21 Carbon Dioxide 22 mEq/L (23-29) L 07/10/19 01:11 BUN 25 mg/dL (8-23) H 07/09/19 04:10 BUN/Creatinine Ratio 29 (6-26) H 07/10/19 01:11 Glucose 147 mg/dL (70-105) H 07/09/19 04:10 Calculated Osmolality 279 (280-300) L 07/11/19 02:39 Calcium 8.2 mg/dL (8.6-10.3) L 07/11/19 02:39 Globulin 2.3 g/dL (2.4-3.5) L 07/08/19 05:21 Crossmatch See Detail 07/10/19 08:13 Consult Discharge Plan - Plan Referrals: Alma Rosa Wilburn, DIRECT CARE WORKER [Primary Care Provider] -
[2019-07-11 18:11] LABS: Hematocrit 29.1 % (35.3-44.9); Hemoglobin 9.5 g/dL (11.5-15.4)
[2019-07-12] MEDS: *HR* OxyCODONE/APAP 7.5/325 TABLET PO PRN ×4 (00:54→21:49)
[2019-07-12 06:55] LABS: Hematocrit 28.5 % (35.3-44.9); Hemoglobin 9.1 g/dL (11.5-15.4)
[2019-07-12] MEDS: Budesonide/Formoterol 160/4.5 1 PUFF INH IH SCH ×2 (08:13→20:05)
[2019-07-12] MEDS: Aspirin 325 MG TABLET PO SCH (08:34)
[2019-07-12] MEDS: amLODIPine 5 MG TABLET PO SCH (08:34)
[2019-07-12] MEDS: Famotidine 20 MG TABLET PO SCH (08:34)
[2019-07-12] MEDS: Vitamin B Complex/Vit C/Vit E 1 EACH TABLET PO SCH (08:34)
--- NOTE | 2019-07-12 08:39 | Internal Med Progress Note ---
<Yumi Cornejo - Last Filed: 07/12/19 11:41> Hospitalist Progress Note - Encounter Date of Encounter: 07/12/19 - Exam Vitals: Temp Pulse Resp BP Pulse Ox 98 F 81 18 113/69 94 07/12/19 07:30 07/12/19 07:30 07/12/19 08:15 07/12/19 07:30 07/12/19 09:10 - Assessment and Plan (1) COPD (chronic obstructive pulmonary disease) Current Visit: No Status: Chronic (2) Right femoral shaft fracture Current Visit: Yes Status: Acute (3) Decreased GFR Current Visit: Yes Status: Acute (4) Decreased potassium in the blood Current Visit: Yes Status: Acute (5) Tobacco abuse Current Visit: Yes Status: Chronic (6) Uses alcohol occasionally Current Visit: Yes Status: Chronic - Time Spent with Patient Total time spent is greater than 50% in coordination of care (as documented) at patient's floor/unit and/or counseling patient: Internal Medicine: Result - Labs CBC & Chem 7: 07/12/19 05:19 07/11/19 02:39 Labs: Short CBC 07/11/19 07/11/19 07/12/19 Range/Units 11:58 17:44 05:19 Hgb 8.6 L 9.5 L 9.1 L (11.5-15.4) g/dL Hct 26.6 L 29.1 L 28.5 L (35.3-44.9) % - ABG Interpretation ABG results: PT/INR, D-dimer PT 11.2 Seconds (9.4-12.1) 07/09/19 11:15 Consult Discharge Plan - Plan Referrals: Alma Rosa Wilburn, DIRECTOR OF CHILD WELFARE SERVICES [Primary Care Provider] - - Attending Attestation I examined this patient and my medical decision-making was reviewed with the Resident Physician Dr Espino. I agree with the documented findings, disposition and treatment plan as described except to the extent set forth below. Ms Ortega is admitted for femur fracture requiring surgical intervention. Discharge is delayed due to her refusal to be placed in rehab and unsafe for dc to home alone requiring cont PT and staff assistance activity here. awake, eating breakfast in chair. she denies cp, sob and states acitivty was fine yesterday and she did well but felt tired Informed her nursing staff let us know that things went quite differently and that ortho surg agrees she isn't safe to go hoem at this time RN report notes that she can barely ambulate to bathroom without becoming fatigued and sob and HR elevating and that she appears very deconditioned PT notes report she was sob walking and had significant pain. Everyone has extensively discussed she is a fall risk and their concerns and she adamantly refuses placement gen- alert, awake,appears stated age, cv- reg rate and rhythm, normal s1,s2, lungs- ctabl, normal resp effort on o2 nc neuro- AAOx3 Right Femoral Shaft fracture- s/p ORIF/nail 07/08, post op care as per ortho, refusing snf, iPT/OT and staff assisted activity here as she is not safe to go home Possible NSTEMI, sxs resolved Non obstructive CAD hx pt refused stress test due to not being able to tolerate with leg pain both pre and post op -appreciate cards input ,outpt testing and follow up, cont home med regimen -asa will be 325 mg daily for vte ppx, in upcoming weeks she will be able to change back to 81 mg daily Acute post operative blood loss anemia, worsened in setting of hep gtt, without active bleeding or hemodynamic instability- serial hgbs now stable Chronic Resp failure on O2 2L cont at home for COPD New 4L requirement with exertion, cannot confirm this is acute, suspect deconditioning at home and she has hinted at that she can just turn her o2 up at home if she needs more -in post op setting we do not have concern for pe as she was on hep gtt and vte ppx after, she has no s/s of pna at this time -given HR elevated and sxs w exertion this seems to be more related to acute on chronic deconditioning vs cardiac/CAD related but she is refusing stress test inpt and snf placement further dx and plan as noted by resident barrier to discharge- pt unsafe to return home and refusing snf update: pt out of bed on her own without asking for assistance as instructed and had fall in bathroom. no injury to head or LOC. mechanical fall. now right wrist and right hip pain. Ortho team also aware. imaging ordered, she should remain bed rest until results. Nursing has placed a bed alarm since it is clear she is not reliably asking for assistance, fall precautions and up with assist as ordered. <Duane Espino - Last Filed: 07/12/19 17:10> Hospitalist Progress Note - Encounter Date of Encounter: 07/12/19 Time of Encounter: 08:38 - Subjective Interval History: No acute events overnight. Yesterday the patient had significant shortness of breath when working with rehabilitation or being moved up to chair. This morning she was informed that surgery had not cleared her for discharge and she would need to stay and work with rehabilitation. She was reminded that she was recommended to be discharged to [facility] facility which she adamantly refuses. Later in the morning the patient attempted to go to the bathroom on her own which she was strictly warned against. She did end up on the ground complaining of right wrist pain, denied hitting her head. X-rays of the wrist, pelvis, right femur were negative for acute abnormality. - Exam Vitals: Temp Pulse Resp BP Pulse Ox 98 F 81 18 113/69 99 07/12/19 07:30 07/12/19 07:30 07/12/19 08:15 07/12/19 07:30 07/12/19 08:15 Exam: Gen: AAOx3, Ple[place], NAD CVS: S1, S2, regular rate and rhythm Lungs: Clear to auscultation bilaterally Abdominal: soft, nontender, bowel sounds present Skin: bandage on RLE over surgical site; dry and clean, no signs of bleeding Extremities: neurovascular and motor function intact LE B/L - Assessment and Plan (1) Physical deconditioning Current Visit: Yes Status: Acute Assessment and Plan: Patient has had significant difficulty working with rehabilitation secondary to pain and shortness of breath The patient is requiring 4 L with exertion which is double her home use, but she has no clinical signs of COPD exacerbation This is likely secondary to physical deconditioning, postoperative status, and chronic coronary artery disease She has been offered Cardiologic evaluation but refused to comply with stress testing secondary to discomfort Patient will require significant rehabilitation, she has been recommended to discharge to [facility] facility but refuses We will continue to monitor for clearance from surgery and continue to work with social work to determine discharge disposition (2) Anemia Current Visit: Yes Status: Acute Assessment and Plan: Acute postoperative blood loss anemia Worsened in setting of heparin drip, without signs of active bleeding such as hematoma or melena Patient has remained hemodynamically stable, Heparin drip discontinued, hemoglobin trending We will transfuse for hemoglobin less than 8 in setting of coronary artery disease (3) CAD (coronary artery disease) Current Visit: Yes Status: Chronic Assessment and Plan: Patient was originally admitted for right femoral shaft fracture Complicated by chest pain in setting of known CAD Radiology did evaluate the patient, stress test canceled due to hip fracture and unable to comply with test She did have repeat episodes of chest pain, EKG did demonstrate changes concerning for NSTEMI Aspirin and heparin drip were initiated and continued, chest pain resolved Cardiology reevaluated and recommended outpatient follow-up, heparin drip discontinued and aspirin 325 continued for DVT prophylaxis We will transition back to aspirin 81 mg daily after discharge, continue statin and beta nina Patient has since had no further chest pain (4) Right femoral shaft fracture Current Visit: Yes Status: Acute Assessment and Plan: Patient presented with right femoral shaft fracture Open reduction internal fixation performed by orthopedic surgery on 07/08/19 Patient currently recovering and working with rehabilitation Rehabilitation recommending [facility] facility, patient adamantly denies Plan for discharge to home with home health physical therapy once medically stable (5) COPD (chronic obstructive pulmonary disease) Current Visit: Yes Status: Chronic Assessment and Plan: History of COPD with home O2 use of 2 L, not in current exacerbation Patient requiring above baseline oxygen due to anemia and physical exertion/deconditioning We will continue bronchodilators and oxygen as needed - Time Spent with Patient Total time spent is greater than 50% in coordination of care (as documented) at patient's floor/unit and/or counseling patient: Internal Medicine: Result - Labs CBC & Chem 7: 07/12/19 05:19 07/11/19 02:39 Labs: Short CBC 07/11/19 07/11/19 07/11/19 Range/Units 08:36 11:58 17:44 Hgb 9.4 L 8.6 L 9.5 L (11.5-15.4) g/dL Hct 28.8 L 26.6 L 29.1 L (35.3-44.9) % 07/12/19 Range/Units 05:19 Hgb 9.1 L (11.5-15.4) g/dL Hct 28.5 L (35.3-44.9) % - ABG Interpretation ABG results: PT/INR, D-dimer PT 11.2 Seconds (9.4-12.1) 07/09/19 11:15 <Yumi Cornejo - Last Filed: 07/12/19 11:41> (1) COPD (chronic obstructive pulmonary disease) Qualifiers: COPD type: unspecified COPD Qualified Code(s): J44.9 - Chronic obstructive p ulmonary disease, unspecified (2) Right femoral shaft fracture Qualifiers: Encounter type: initial encounter Fracture type: closed Fracture morphology: spiral Fracture alignment: displaced Qualified Code(s): S72.341A - Displaced spiral fracture of shaft of right femur, initial encounter for closed fracture <Duane Espino - Last Filed: 07/12/19 17:10> (2) Anemia Qualifiers: Anemia type: unspecified type Qualified Code(s): D64.9 - Anemia, unspecified (3) CAD (coronary artery disease) Qualifiers: Coronary Disease-Associated Artery/Lesion type: [place] artery [place] vs. transplanted heart: [place] heart Associated angina: without angina Qualified Code(s): I25.10 - Atherosclerotic heart disease of [place] coronary artery without angina pectoris (4) Right femoral shaft fracture Qualifiers: Encounter type: initial encounter Fracture type: closed Fracture morphology: spiral Fracture alignment: displaced Qualified Code(s): S72.341A - Displaced spiral fracture of shaft of right femur, initial encounter for closed fracture (5) COPD (chronic obstructive pulmonary disease) Qualifiers: COPD type: unspecified COPD Qualified Code(s): J44.9 - Chronic obstructive pulmonary disease, unspecified
[2019-07-12 10:13] LABS: CK-BB (CK isoenzymes) 0 % (0-0); CK-MB (CK isoenzymes) 0 % (0-4); CK-MM (CK-isoenzymes) 100 % (96-100)
[2019-07-12 10:28] LABS: CK Total (Ck Isoenzymes) 1653 U/L (20-180)
[2019-07-12] MEDS ORDERED: NON-FORMULARY MEDICATION 1 EACH EACH (Alendronate Sodium [Fosamax] 70 MG) PO SCH (17:32)
--- NOTE | 2019-07-12 17:38 | Event Note ---
Date of Encounter: 07/12/19 Time of Encounter: 17:34 Since admission and surgery patient has been informed that she is not to attempt to get up or go to the bathroom on her own due to fall risk. This morning the patient was found on the floor in the bathroom after having attempted to go by herself. She denied hitting her head at that time but complained of right wrist pain and falling on her right hip where her surgery was performed. X-rays of the right wrist, pelvis, femur were negative for acute abnormalities. Patient was reeducated on not getting up without assistance, fall precautions were started, bed alarm was put in place. I received notification from the nurse this evening that the patient was again found on the ground after attempting to get up to use the commode on her own. The patient adamantly denied falling and instead insists she lowered herself to the ground when she realized she would not be able to physically make it back to her bed. She was found lying on the floor supine with a couch cushion under her head. Patient states she regularly does this at home when she is physically incapable of ambulating. The patient was again warned against attempting to ambulate on her own and a sitter was ordered.
[2019-07-12] MEDS: Acetaminophen 325 MG TABLET PO PRN (19:39)
[2019-07-13] MEDS: *HR* OxyCODONE/APAP 7.5/325 TABLET PO PRN ×3 (03:38→20:56)
[2019-07-13 05:27] LABS: Hemoglobin 9.5 g/dL (11.5-15.4)
--- NOTE | 2019-07-13 07:23 | Orthopedics Progress Note ---
Date of Encounter: 07/13/19 Time of Encounter: 07:23 - Assessment and Plan (1) Femur fracture, right Current Visit: Yes Status: Acute Qualifiers: Qualified Code(s): S72.91XA - Unspecified fracture of right femur, initial encounter for closed fracture Subjective Principal diagnosis: s/p right hip TFN 07/08 Interval history: S: Thigh pain controlled Events over the weekend noted. Patient was apparently found down earlier and had new onset right wrist pain. O: Afebrile and vital signs are stable Operative extremity incisions are clean, dry, and intact. Mild dorsal wrist tenderness without swelling. Neurovascularly intact distally Diagnostic Imaging: I did personally review and interpret x-rays of the right femur do show some hughes btle movement of the proximal interlocking screw by the knee. Overall alignment is without significant change regarding the femur. X-rays of the wrist do not show any definite fractures. A: Reduction and fixation of the right femur P: At this point we will switch her weightbearing status to nonweightbearing to the right lower extremity given concern for possible movement of the fracture after being found down, though the overall alignment has not changed. Anticipate 4-6 weeks of nonweightbearing to the right lower extremity depending on clinical and radiographic findings. Right wrist x-rays do not show any definite fractures but will continue to follow clinically. Should pain her symptoms worsen we will consider short arm splint or casting. Continue aspirin 325 by mouth daily for D VT prophylaxis. Objective Vital signs: Vital Signs Temp Pulse Resp BP Pulse Ox 07/13/19 05:39 99.0 F 102 20 104/66 95 07/12/19 22:11 98.4 F 73 20 114/64 96 07/12/19 20:05 16 94 07/12/19 19:13 99.3 F 82 18 124/75 94 07/12/19 17:30 97.5 F L 86 18 130/78 07/12/19 17:00 97.5 F L 87 16 135/82 96 07/12/19 14:01 98.1 F 83 16 129/78 92 07/12/19 11:21 97.6 F 74 20 126/73 93 07/12/19 09:10 94 07/12/19 08:15 18 99 07/12/19 07:30 98 F 81 18 113/69 99 Intake and Output 07/12/19 07/12/19 07/13/19 15:59 23:59 07:59 Intake Total 650 / 2050 450 / 450 Output Total 950 / 950 Balance -950 / 1100 650 / 1100 450 / 450 Intake: Oral 650 / 2050 450 / 450 Output: Urine 950 / 950 Other: Stool Size Moderate Stool Consistency formed Stool Characteristics Normal for Patient Stool Color Brown # Voids 1 1 1 Weight 50.2 kg Blood Glucose* 104 Patient Weight 07/13/19 23:59 Weight 50.2 kg - Labs CBC & BMP: 07/13/19 07:40 07/13/19 07:40 Labs: Abnormal lab results WBC 11.9 K/mcL (4.3-11.1) H 07/09/19 11:15 RBC 2.62 M/mcL (3.82-4.97) L 07/11/19 02:39 Hgb 9.5 g/dL (11.5-15.4) L 07/13/19 03:50 Hct 30.0 % (35.3-44.9) L 07/13/19 03:50 MCV 102.3 fL (83.0-100.0) H 07/11/19 02:39 MCH 33.6 pg (28.0-33.3) H 07/11/19 02:39 RDW 14.9 % (11.5-14.5) H 07/11/19 02:39 Plt Count 135 K/mcL (140-400) L 07/11/19 02:39 Neutrophils # 9.9 K/mcL (1.6-8.9) H 07/09/19 04:10 Lymphocytes # 0.5 K/mcL (0.6-4.6) L 07/09/19 04:10 Monocytes # 1.4 K/mcL (0.0-1.3) H 07/10/19 01:11 Nucleated RBCs/100 WBC 0.5 /100 WBC (0) H 07/11/19 02:39 Heparin Anti-Xa, Unfract 0.25 IU/mL (0.30-0.70) L 07/09/19 18:40 Sodium 134 mEq/L (136-145) L 07/11/19 02:39 Chloride 108 mEq/L (98-107) H 07/08/19 05:21 Carbon Dioxide 22 mEq/L (23-29) L 07/10/19 01:11 BUN 25 mg/dL (8-23) H 07/09/19 04:10 BUN/Creatinine Ratio 29 (6-26) H 07/10/19 01:11 Glucose 147 mg/dL (70-105) H 07/09/19 04:10 POC Glucose 104 mg/dL (70-99) H 07/13/19 02:40 Calculated Osmolality 279 (280-300) L 07/11/19 02:39 Calcium 8.2 mg/dL (8.6-10.3) L 07/11/19 02:39 Creatine Kinase 1653 U/L (20-180) H 07/09/19 11:15 Globulin 2.3 g/dL (2.4-3.5) L 07/08/19 05:21 Crossmatch See Detail 07/10/19 08:13 Consult Discharge Plan - Plan Referrals: Alma Rosa Wilburn, [employer]ADER [Primary Care Provider] -
[2019-07-13] MEDS: Budesonide/Formoterol 160/4.5 1 PUFF INH IH SCH ×2 (07:24→20:23)
[2019-07-13 07:59] LABS: Hematocrit 31.3 % (35.3-44.9); Mean Corpuscular HGB Conc 31.9 g/dL (31.6-35.5); Mean Corpuscular Hemoglobin 33.2 pg (28.0-33.3); Platelet Count 215 K/mcL (140-400); Red Blood Count 3.01 M/mcL (3.82-4.97); Red Cell Distribution Width 15.2 % (11.5-14.5); White Blood Count 7.6 K/mcL (4.3-11.1)
[2019-07-13 08:08] LABS: BUN/Creatinine Ratio 20 (6-26); Blood Urea Nitrogen 14 mg/dL (8-23); Carbon Dioxide 25 mEq/L (23-29); Chloride 103 mEq/L (98-107); Glucose 113 mg/dL (70-105); Osmolality,Calculated 283 (280-300); Potassium 3.9 mEq/L (3.5-5.1); Sodium 136 mEq/L (136-145); eGFR For African Americans > 60 (> 60); eGFR For Non-African Americans > 60 (> 60)
[2019-07-13] MEDS: Famotidine 20 MG TABLET PO SCH (08:23)
[2019-07-13] MEDS: Aspirin 325 MG TABLET PO SCH (08:23)
[2019-07-13] MEDS: Vitamin B Complex/Vit C/Vit E 1 EACH TABLET PO SCH (08:23)
[2019-07-13] MEDS: amLODIPine 5 MG TABLET PO SCH (08:23)
--- NOTE | 2019-07-13 08:44 | Internal Med Progress Note ---
<Carl Rojo - Last Filed: 07/13/19 16:15> Hospitalist Progress Note - Encounter Date of Encounter: 07/13/19 Time of Encounter: 08:44 - Subjective Interval History: Pt was returning from testing upon my arrival.Pt denies any chest pains, diarrhea, nausea, constipation. Admits to SOB with exertion however this is not new for her. The PGY2 resident and I discussed with her the importance of attending rehab s/p her femoral shaft fracture and she declined and states she wants to go home for one hour to see her dog. We tried to educate her on the importance of rehab and the dangers of leaving AMA and going home alone in her current state. As of 07/13 she has agreed to stay another night and d/c to rehab tomorrow 07/14. - Exam Vitals: Temp Pulse Resp BP Pulse Ox 99.0 F 102 20 104/66 96 07/13/19 05:39 07/13/19 05:39 07/13/19 07:26 07/13/19 05:39 07/13/19 07:26 Exam: Gen: AAOx3, anxious, tearful CVS: RRR, S1, S2 Lungs: Diminished breath sounds, some mild expiratory wheezing appreciated, symmetric chest wall expansion, normal effort breathing Extremities: Surgical site clear without drainage w/ bandages in place. Neurov ascularl and motor function intact. Abdominal: nontender, soft, no guarding - Assessment and Plan (1) Physical deconditioning Current Visit: Yes Status: Acute Assessment and Plan: Patient has had significant difficulty working with rehabilitation secondary to pain and shortness of breath Currently on 3L O2 satting at 96%; no clinical signs of COPD exacerbation This is likely secondary to physical deconditioning, postoperative status, and chronic coronary artery disease She has been offered Cardiologic evaluation but refused to comply with stress testing secondary to discomfort Pt had 2 falls in room noted per nursing note 07/12-- xrays negative. Pt denies hitting her head; CT of head obtained 07/13 which was unremarkable Patient will require significant rehabilitation, she was initially refusing d/c to snf but as of 07/13 agreed to snf placement We will continue to monitor for clearance from surgery and continue to work with social work to determine discharge disposition (2) Anemia Current Visit: Yes Status: Acute Assessment and Plan: Acute postoperative blood loss anemia Worsened in setting of heparin drip, without signs of active bleeding such as hematoma or melena Patient has remained hemodynamically stable, Heparin drip discontinued, hemoglobin trending-- hgb 10 07/13 We will transfuse for hemoglobin less than 8 in setting of coronary artery disease (3) CAD (coronary artery disease) Current Visit: Yes Status: Chronic Assessment and Plan: Patient was originally admitted for right femoral shaft fracture--sudden onset of pain at home while talking on the phone. She denies any falls or loss of consciousness Complicated by chest pain in setting of known CAD Radiology did evaluate the patient, stress test canceled due to hip fracture and unable to comply with test She did have repeat episodes of chest pain, EKG did demonstrate changes concerning for NSTEMI Aspirin and heparin drip were initiated and continued, chest pain resolved Cardiology reevaluated and recommended outpatient follow-up, heparin drip discontinued and aspirin 325 continued for DVT prophylaxis We will transition back to aspirin 81 mg daily after discharge, continue statin and beta nina Patient has since had no further chest pain (4) Right femoral shaft fracture Current Visit: Yes Status: Acute Assessment and Plan: Patient presented with right femoral shaft fracture Open reduction internal fixation performed by orthopedic surgery on 07/08/19 Patient currently recovering and working with rehabilitation Rehabilitation recommending care home facility Patient initially declined SNF placement, however after some discussion of the risks and benefits of not attending rehab she agreed to placement 07/13 Plan for discharge to home with home health physical therapy once medically stable (5) COPD (chronic obstructive pulmonary disease) Current Visit: Yes Status: Chronic Assessment and Plan: History of COPD with home O2 use of 2 L, not in current exacerbation Patient requiring above baseline oxygen due to anemia and physical exertion/deconditioning --- 3L O2 07/13 We will continue bronchodilators and oxygen as needed (6) Tobacco abuse Current Visit: Yes Status: Chronic (7) Uses alcohol occasionally Current Visit: Yes Status: Chronic - Time Spent with Patient Total time spent is greater than 50% in coordination of care (as documented) at patient's floor/unit and/or counseling patient: Internal Medicine: Result - Labs CBC & Chem 7: 07/13/19 07:40 07/13/19 07:40 Labs: Short CBC 07/13/19 07/13/19 Range/Units 03:50 07:40 WBC 7.6 (4.3-11.1) K/mcL Hgb 9.5 L 10.0 L (11.5-15.4) g/dL Hct 30.0 L 31.3 L (35.3-44.9) % Plt Count 215 D (140-400) K/mcL BMP 07/13/19 07:40 Sodium 136 Potassium 3.9 Chloride 103 Carbon Dioxide 25 BUN 14 Creatinine 0.71 Glucose 113 H Calcium 9.0 Cardiac Enzymes 07/09/19 Range/Units 11:15 CK-MB (CK-2) 0 (0-4) % - ABG Interpretation ABG results: PT/INR, D-dimer PT 11.2 Seconds (9.4-12.1) 07/09/19 11:15 - Impressions Impressions Femur X-Ray 07/12/19 11:22 IMPRESSION: Linear lucency in the greater trochanter which was not definitely visualized on the prior study and may represent postsurgical change, normal appearance of the greater trochanter. However, if there is continued pain this could represent nondisplaced fracture. No evidence of hardware complication. Unchanged alignment of the femoral fracture. D/ / Satya Mack MD / Satya Mack MD Interpreting Provider: Satya Mack MD Pelvis X-Ray 07/12/19 11:22 IMPRESSION: No acute osseous abnormality of the pelvis. D/ / Arya Hooks MD / Arya Hooks MD Interpreting Provider: Arya Hooks MD Wrist X-Ray 07/12/19 11:22 IMPRESSION: 1. No acute abnormality. D/ / Satya Foreman MD / Satya Foreman MD Interpreting Provider: Satya Foreman MD Consult Discharge Plan - Plan Referrals: Alma Rosa Wilburn, INF[employer] AND [employer]DL[employer] TEACHER [Primary Care Provider] - <Yumi Cornejo M - Last Filed: 07/13/19 17:42> Hospitalist Progress Note - Encounter Date of Encounter: 07/13/19 - Exam Vitals: Temp Pulse Resp BP Pulse Ox 98.5 F 79 16 135/77 98 07/13/19 15:52 07/13/19 15:52 07/13/19 15:52 07/13/19 15:52 07/13/19 15:52 - Assessment and Plan (1) COPD (chronic obstructive pulmonary disease) Current Visit: Yes Status: Chronic (2) Right femoral shaft fracture Current Visit: Yes Status: Acute (3) Decreased GFR Current Visit: Yes Status: Acute (4) Decreased potassium in the blood Current Visit: Yes Status: Acute (5) Tobacco abuse Current Visit: Yes Status: Chronic (6) Uses alcohol occasionally Current Visit: Yes Status: Chronic - Time Spent with Patient Total time spent is greater than 50% in coordination of care (as documented) at patient's floor/unit and/or counseling patient: Internal Medicine: Result - Labs CBC & Chem 7: 07/13/19 07:40 07/13/19 07:40 Labs: Short CBC 07/13/19 07/13/19 Range/Units 03:50 07:40 WBC 7.6 (4.3-11.1) K/mcL Hgb 9.5 L 10.0 L (11.5-15.4) g/dL Hct 30.0 L 31.3 L (35.3-44.9) % Plt Count 215 D (140-400) K/mcL BMP 07/13/19 07:40 Sodium 136 Potassium 3.9 Chloride 103 Carbon Dioxide 25 BUN 14 Creatinine 0.71 Glucose 113 H Calcium 9.0 - ABG Interpretation ABG results: PT/INR, D-dimer PT 11.2 Seconds (9.4-12.1) 07/09/19 11:15 - Impressions Impressions Head CT 07/13/19 08:55 IMPRESSION: No acute intracranial abnormality. D/ / 07/13/2019 09:36:16 Monique Brown MD / Mariajose Villanueva Interpreting Provider: Monique Brown MD - Attending Attestation The history, physical exam, and medical decision making was performed by the medical student either while I was physically present and actively involved or I personally re-performed the exam and medical decision making. I have verified the accuracy of the medical student's documentation with regards to the history, physical exam findings, and medical decision making. Ms Jordan is admitted for femur fracture requiring surgical intervention. Discharge is delayed due to her refusal to be placed in rehab and unsafe for dc to home alone requiring cont PT and staff assistance activity here. Now stating she will go to rehab. Given she had sitter needs to be 24h free of sitter to go agitated, angry, wanting to leave ama, denies cp, sob on home o2 or leg pain gen- alert, awake,appears stated age, cv- reg rate and rhythm, normal s1,s2, no le edema lungs- ctabl, normal resp effort on o2 nc neuro- AAOx3 Right Femoral Shaft fracture Multiple Mechanical falls CT head neg - s/p ORIF/nail 07/08, post op care as per ortho, now saying will go to rehab, fall precautions, bed alarm, dc sitter Possible NSTEMI, sxs resolved Non obstructive CAD hx pt refused stress test due to not being able to tolerate with leg pain both pre and post op -appreciate cards input ,outpt testing and follow up, cont home med regimen -asa will be 325 mg daily for vte ppx, in upcoming weeks she will be able to change back to 81 mg daily Acute post operative blood loss anemia, worsened in setting of hep gtt, without active bleeding or hemodynamic instability- serial hgbs now stable for dc Chronic Resp failure on O2 2L cont at home for COPD New 4L requirement with exertion, cannot confirm this is acute, suspect deconditioning at home and she has hinted at that she can just turn her o2 up at home if she needs more 2/2 deconditioning, CAD and COPD further dx and plan as noted by student barrier to discharge- pt unsafe to return home and refusing snf, now agreeable to rehab, dc sitter, hopeful for dc to rehab tomorrow <Carl Rojo R - Last Filed: 07/13/19 16:15> (2) Anemia Qualifiers: Anemia type: unspecified type Qualified Code(s): D64.9 - Anemia, unspecified (3) CAD (coronary artery disease) Qualifiers: Coronary Disease-Associated Artery/Lesion type: [place] artery [place] vs. transplanted heart: [place] heart Associated angina: without angina Qualified Code(s): I25.10 - Atherosclerotic heart disease of [place] coronary artery without angina pectoris (4) Right femoral shaft fracture Qualifiers: Encounter type: initial encounter Fracture type: closed Fracture morphology: spiral Fracture alignment: displaced Qualified Code(s): S72.341A - Displaced spiral fracture of shaft of right femur, initial encounter for closed fracture (5) COPD (chronic obstructive pulmonary disease) Qualifiers: COPD type: unspecified COPD Qualified Code(s): J44.9 - Chronic obstructive p ulmonary disease, unspecified <Yumi Cornejo M - Last Filed: 07/13/19 17:42> (1) COPD (chronic obstructive pulmonary disease) Qualifiers: COPD type: unspecified COPD Qualified Code(s): J44.9 - Chronic obstructive pulmonary disease, unspecified (2) Right femoral shaft fracture Qualifiers: Encounter type: initial encounter Fracture type: closed Fracture morphology: spiral Fracture alignment: displaced Qualified Code(s): S72.341A - Displaced spiral fracture of shaft of right femur, initial encounter for closed fracture
--- NOTE | 2019-07-13 09:57 | Event Note ---
Date of Encounter: 07/13/19 Time of Encounter: 08:30 Pt awake in bed with sitter at bedside. She is insistent she is signing out AMA today. She confirms on examine she is AAOx3. She independently names risk of going home as falling and breaking more bones. I informed her that she also could fall and hit her head or injure other organs and develop a bleed in her brain or elsewhere that could result in . She verbalized understanding and stated no matter what anyone says or does she is leaving this hospital today. She will not say why she is leaving today but states "there's something I have to do today". She has no ride home. States she will find one. I asked if I had her permission to update any family members to her condition and our recommendations and our fears regarding her leaving the hospital at this time. She told me I do NOT have permission to talk to any of her family members on the phone or in person to do that or speak to them otherwise. She states she lives alone, she will not ask a family member to stay with her and she will not go stay with anyone when she leaves. RN updated. Night RN present and notes she was briefly confused for him last night (middle of night, 1.5 h after pain pill and didn't know where she was and said she had to leave). Night ASSET PROTECTION REPRESENTATIVE saw her and she was AAOx3 at that time shortly after. Given this info a CT head is ordered for this morning, jefferson with risk of her leaving AMA today. I fear she will refuse it. RN updated me that her daughter called the floor this morning and said she will not be picking her mother up today bc she believes she needs to stay in hospital. Dr Abdalla was updated by RN of pt attempts to get ride to leave AMA. This is a very unfortunate situation as she has clearly demonstrated she is high fall risk but also risk of DVT post op. Dr Abdalla recommends daily ASA 325 mg on dc for 28 d. She is high risk for event leaving hospital and though I do not have permission to speak to any family to voice these concerns, it is reassuring her daughter independently contacted staff today to say she didn't think she should leave either. for full exam see today's progress note
[2019-07-14 05:10] LABS: Hematocrit 28.3 % (35.3-44.9); Hemoglobin 9.1 g/dL (11.5-15.4)
[2019-07-14] MEDS: *HR* OxyCODONE/APAP 7.5/325 TABLET PO PRN ×2 (06:05→18:04)
--- NOTE | 2019-07-14 06:40 | Orthopedics Progress Note ---
Date of Encounter: 07/14/19 Time of Encounter: 06:35 - Assessment and Plan (1) Femur fracture, right Current Visit: Yes Status: Acute Qualifiers: Qualified Code(s): S72.91XA - Unspecified fracture of right femur, initial encounter for closed fracture Subjective Principal diagnosis: s/p right hip TFN 07/08 Interval history: S: Patient is seen today and has no complaints. Pain well-controlled to the right leg No issues overnight O: Afebrile and vital signs are stable Operative extremity incision is clean, dry, and intact. Wrist remains painful with specific tenderness over the dorsal and radial aspect of the distal radius. No deformities. Neurovascularly intact. The wrist x-ray obtained previously does not show any definite fractures, however there does appear to be some possible buckling seen on the AP A: Internal fixation of the right femur Possible occult right distal radius fracture P: Continue postoperative care. Nonweightbearing to the right lower extremity due to the patient's osteopenia Recommend full-time Velcro wrist bracing to the right wrist nonweightbearing to the right wrist. May use a platform walker. Objective Vital signs: Vital Signs Temp Pulse Resp BP Pulse Ox 07/14/19 04:45 98 F 98 17 110/67 93 07/14/19 00:32 98 F 67 17 117/79 92 07/13/19 21:00 98 07/13/19 20:25 20 92 07/13/19 18:50 98.2 F 80 18 117/72 98 07/13/19 15:52 98.5 F 79 16 135/77 98 07/13/19 11:30 97.8 F 84 16 118/77 93 07/13/19 09:00 96 07/13/19 07:26 20 96 Intake and Output 07/13/19 07/13/19 07/14/19 15:59 23:59 07:59 Intake Total 1080 / 1530 Output Total 400 / 400 800 / 800 Balance 1080 / 1130 -400 / 1130 -800 / -800 Intake: Oral 480 / 930 Free Water 600 / 600 Output: Urine 400 / 400 800 / 800 Other: Meal Lunch Percent of Meal Consumed 40% # Voids 1 1 1 # Bowel Movements 0 Weight 58.9 kg Patient Weight 07/14/19 23:59 Weight 58.9 kg - Labs CBC & BMP: 07/14/19 04:55 07/13/19 07:40 Labs: Abnormal lab results WBC 11.9 K/mcL (4.3-11.1) H 07/09/19 11:15 RBC 3.01 M/mcL (3.82-4.97) L 07/13/19 07:40 Hgb 9.1 g/dL (11.5-15.4) L 07/14/19 04:55 Hct 28.3 % (35.3-44.9) L 07/14/19 04:55 MCV 104.0 fL (83.0-100.0) H 07/13/19 07:40 MCH 33.6 pg (28.0-33.3) H 07/11/19 02:39 RDW 15.2 % (11.5-14.5) H 07/13/19 07:40 Plt Count 135 K/mcL (140-400) L 07/11/19 02:39 Neutrophils # 9.9 K/mcL (1.6-8.9) H 07/09/19 04:10 Lymphocytes # 0.5 K/mcL (0.6-4.6) L 07/09/19 04:10 Monocytes # 1.4 K/mcL (0.0-1.3) H 07/10/19 01:11 Nucleated RBCs/100 WBC 0.5 /100 WBC (0) H 07/11/19 02:39 Heparin Anti-Xa, Unfract 0.25 IU/mL (0.30-0.70) L 07/09/19 18:40 Sodium 134 mEq/L (136-145) L 07/11/19 02:39 Chloride 108 mEq/L (98-107) H 07/08/19 05:21 Carbon Dioxide 22 mEq/L (23-29) L 07/10/19 01:11 BUN 25 mg/dL (8-23) H 07/09/19 04:10 BUN/Creatinine Ratio 29 (6-26) H 07/10/19 01:11 Glucose 113 mg/dL (70-105) H 07/13/19 07:40 POC Glucose 104 mg/dL (70-99) H 07/13/19 02:40 Calculated Osmolality 279 (280-300) L 07/11/19 02:39 Calcium 8.2 mg/dL (8.6-10.3) L 07/11/19 02:39 Creatine Kinase 1653 U/L (20-180) H 07/09/19 11:15 Globulin 2.3 g/dL (2.4-3.5) L 07/08/19 05:21 Crossmatch See Detail 07/10/19 08:13 Consult Discharge Plan - Plan Additional Instructions: HALF-WAY DISCHARGE INSTRUCTIONS Dr. Abdalla PROCEDURE PERFORMED Internal fixation of the right femur Incision care -Daily dressing changes to the right thigh with dry gauze and paper or Medipore tape. Weight bearing status -Nonweightbearing to the right lower extremity -Nonweightbearing to the right wrist -May weight-bear through the right elbow with a platform walker. Medications -Pain medication per the discharging medical doctor -Enteric coated aspirin 325 mg by mouth daily for 28 days from the date of the surgery. Other -Velcro wrist base of the right wrist at all times with the exception of hygiene. -Consult physical and occupational therapy for mobilization. -Up to chair with assistance at least twice per day. -Follow up with your primary care physician to discuss testing for bone mineral density. Follow-up with Dr. Abdalla at the office 2 weeks from the surgery date for a post operative evaluation. Call the office at [phone] to schedule appointment. Referrals: Alma Rosa Wilburn CNP [Primary Care Provider] -
--- NOTE | 2019-07-14 07:52 | Discharge Summary ---
<Yumi Cornejo - Last Filed: 07/14/19 13:14> Date of Encounter: 07/14/19 - Discharge Diagnosis (1) COPD (chronic obstructive pulmonary disease) Status: Chronic Qualifiers: COPD type: unspecified COPD Qualified Code(s): J44.9 - Chronic obstructive pulmonary disease, unspecified (2) Right femoral shaft fracture Status: Acute Qualifiers: Encounter type: initial encounter Fracture type: closed Fracture morphology: spiral Fracture alignment: displaced Qualified Code(s): S72.341A - Displaced spiral fracture of shaft of right femur, initial encounter for closed fracture (3) Decreased GFR Status: Acute (4) Decreased potassium in the blood Status: Acute (5) Tobacco abuse Status: Chronic (6) Uses alcohol occasionally Status: Chronic Hospital course: Ms. Ortega is a 63 year old female - Time Spent with Patient Total time spent providing and/or coordinating discharge services: - Discharge Medications Prescriptions: New Aspirin 325 mg PO DAILY 23 Days #23 tablet OxyCODONE/APAP 7.5/325 [Percocet 7.5/325 MG] 1 each PO Q8H PRN 2 Days #6 tablet PRN Reason: Severe Pain Acetaminophen [Tylenol] 650 mg PO Q6HR PRN #0 tablet PRN Reason: Mild To Moderate Pain Continued Atorvastatin [Lipitor] 10 mg PO DAILY Metoprolol Tartrate [Lopressor] 50 mg PO BID Fluticasone/Vilanterol [Breo Ellipta 200-25 Mcg INH] 1 puff IH DAILY Alendronate Sodium [Fosamax] 70 mg PO LUCAS raNITIdine HCl [Ranitidine HCl] 300 mg PO DAILY Levothyroxine [Synthroid] 75 mcg PO 0600 #30 tablet Megestrol Acetate [Megace] 40 mg PO DAILY #30 tablet Sertraline [Zoloft] 25 mg PO DAILY #30 tablet traZODone [TraZODone] 25 mg PO HS #15 tablet Vitamin B Complex/Vit C/Vit E [Stresstab] 1 each PO DAILY #30 tablet Amlodipine Besylate 5 mg PO DAILY Nitroglycerin [Nitrostat] 0.4 mg SL Q5MIN PRN PRN Reason: Chest Pain Discontinued Aspirin Enteric Coated [Aspirin EC] 81 mg PO DAILY Home Medications: Atorvastatin [Lipitor] 10 mg PO DAILY 10/03/17 [History] Fluticasone/Vilanterol [Breo Ellipta 200-25 Mcg INH] 1 puff IH DAILY 08/06/17 [History] Metoprolol Tartrate [Lopressor] 50 mg PO BID 08/06/17 [History] Alendronate Sodium [Fosamax] 70 mg PO LUCAS 01/16/19 [History] raNITIdine HCl [Ranitidine HCl] 300 mg PO DAILY 01/16/19 [History] Levothyroxine [Synthroid] 75 mcg PO 0600 #30 tablet 01/19/19 [Rx] Megestrol Acetate [Megace] 40 mg PO DAILY #30 tablet 01/19/19 [Rx] Sertraline [Zoloft] 25 mg PO DAILY #30 tablet 01/19/19 [Rx] Vitamin B Complex/Vit C/Vit E [Stresstab] 1 each PO DAILY #30 tablet 01/19/19 [Rx] traZODone [TraZODone] 25 mg PO HS #15 tablet 01/19/19 [Rx] Amlodipine Besylate 5 mg PO DAILY 06/25/19 [History] Nitroglycerin [Nitrostat] 0.4 mg SL Q5MIN PRN 07/08/19 [History] Acetaminophen [Tylenol] 650 mg PO Q6HR PRN #0 tablet 07/14/19 [Rx] Aspirin 325 mg PO DAILY 23 Days #23 tablet 07/14/19 [Rx] OxyCODONE/APAP 7.5/325 [Percocet 7.5/325 MG] 1 each PO Q8H PRN 2 Days #6 tablet 07/14/19 [Rx] Allergies/Adverse Reactions: Allergy/AdvReac Type Severity Reaction Status Date / Time No Known Allergies Allergy Verified 07/08/19 20:33 Date of admission: 07/08/19 13:28 Primary care physician: Alma Rosa Wilburn CNP Consults: 07/08/19 05:11 Consult to Orthopedic Surgery [CONS] Routine Consulting Provider: [facility] Reason for Consult: Patient transfer from [facility] ER for displaced proximal right femoral shaft fracture. Sending ER spoke to Dr Abdalla who agreed to see patient in consult. Call Completed: Yes 07/08/19 08:05 Consult to Cardiology [CONS] Routine Comment: Consulting Provider: Cardiology [facility] Reason for Consult: pre op risk assessment inpt with femur fracture requiring surgical nail, hx cad, abn stress in past with cath previously non obstructive cad Call Completed: No 07/09/19 00:30 Consult to Occupational Therapy [CONS] Routine Comment: Evaluate, develop and implement POC Reason for Consult: post hip surgery Does patient have active BEDREST order?: No Is patient medically & hemodynamically stable?: Yes Consult to Orthopedic Navigator [CONS] [CONS] Routine Consult to Physical Therapy [CONS] Routine Comment: Evaluate, develop and implement POC Reason for Consult: post hip surgery Does patient have active BEDREST order?: No Is patient medically & hemodynamically stable?: Yes Consult to Boilermaker Pipe Fitter [CONS] Routine Reason for SW Consult: post -op hip fracture RT Post Op Consult [CONS] Routine 07/09/19 10:13 Consult to Cardiology [CONS] Routine Comment: Consulting Provider: Cardiology Karol Reason for Consult: re-evaluate Call Completed: Yes - Constitutional Vitals: Temp Pulse Resp BP Pulse Ox 98.4 F 76 17 103/65 99 07/14/19 11:41 07/14/19 11:41 07/14/19 11:41 07/14/19 11:41 07/14/19 11:41 - Patient Status Disposition: Transfer Inpatient Rehab Fac Condition: Fair - Discharge Instructions Follow Up With: Alma Rosa Wilburn CNP [Primary Care Provider] - Fredy Abdalla MD [Partnered Physician] - Elver Lundy [Partnered Physician] - Additional Instructions: [facility] DISCHARGE INSTRUCTIONS Dr. Abdalla PROCEDURE PERFORMED Internal fixation of the right femur Incision care -Daily dressing changes to the right thigh with dry gauze and paper or Medipore tape. Weight bearing status -Nonweightbearing to the right lower extremity -Nonweightbearing to the right wrist -May weight-bear through the right elbow with a platform walker. Medications -Pain medication per the discharging medical doctor -Enteric coated aspirin 325 mg by mouth daily for 28 days from the date of the surgery. Other -Velcro wrist base of the right wrist at all times with the exception of hygiene. -Consult physical and occupational therapy for mobilization. -Up to chair with assistance at least twice per day. -Follow up with your primary care physician to discuss testing for bone mineral density. Follow-up with Dr. Abdalla at the office 2 weeks from the surgery date for a post operative evaluation. Call the office at [phone] to schedule appointment. Please follow up with Dr. Lundy in his outpatient cardiology office for follow- up and outpatient stress testing. - Attending Attestation I examined this patient and my medical decision-making was reviewed with the Resident Physician Dr Espino. I agree with the documented findings, disposition and treatment plan as described except to the extent set forth below. Ms Jordan is admitted for femur fracture requiring surgical intervention. Discharge is delayed due to her refusal to be placed in rehab and unsafe for dc to home alone requiring cont PT and staff assistance activity here. Now stating she will go to rehab. Given she had sitter needs to be 24h free of sitter to go. Anticipate dc to rehab later today. Medically stbale for dc awake, resting, no pain in wrist or hip. denies any co or sob. eager for discharge. dc plan discussed and she ahs no questions gen- alert, awake,appears stated age cv- reg rate and rhythm, normal s1,s2 lungs- ctabl, normal resp effort on O2 nc msk- right wrist in brace neuro- AAOx3 Right Femoral Shaft fracture s/p ORIF/nail 07/08- fu with ortho outpt, NWB RLE, ASA 325 mg daily for vte ppx as per ortho x28d Possible occult right distal radius fracture- brace as per ortho Possible NSTEMI, sxs resolved pt refused stress test due to not being able to tolerate with leg pain both pre and post op -appreciate cards input ,outpt testing and follow up, cont home med regimen -asa will be 325 mg daily for vte ppx, in upcoming weeks she will be able to change back to 81 mg daily Acute post operative blood loss anemia, worsened in setting of hep gtt, without active bleeding or hemodynamic instability- serial hgbs now stable for dc Chronic Resp failure on O2 2L cont at home for COPD New 4L requirement with exertion, cannot confirm this is acute, suspect deconditioning at home and she has hinted at that she can just turn her o2 up at home if she needs more- 2/2 deconditioning, CAD and COPD further dx and plan as noted by student time spent on dc 40 min <Duane Espino - Last Filed: 07/14/19 16:32> - NOTES TO OUTPATIENT PROVIDER Notes to Outpatient Provider: Patient treated for ACS and femur fracture, she will be discharged to [facility] for rehabilitation. She will be sent with 3 weeks ASA 325 for DVT prophylaxis. She will require outpatient follow-up with orthopedics and cardiology for outpatient stress test. Date of Encounter: 07/14/19 Time of Encounter: 07:52 - Discharge Diagnosis (1) Physical deconditioning Priority: Secondary Status: Acute (2) Anemia Priority: Secondary Status: Acute Qualifiers: Anemia type: unspecified type Qualified Code(s): D64.9 - Anemia, unspecified (3) CAD (coronary artery disease) Priority: Secondary Status: Chronic Qualifiers: Coronary Disease-Associated Artery/Lesion type: [place] artery [place] vs. transplanted heart: [place] heart Associated angina: without angina Qualified Code(s): I25.10 - Atherosclerotic heart disease of [place] coronary artery without angina pectoris (4) Right femoral shaft fracture Priority: Primary Status: Acute Qualifiers: Encounter type: initial encounter Fracture type: closed Fracture morphology: spiral Fracture alignment: displaced Qualified Code(s): S72.341A - Displaced spiral fracture of shaft of right femur, initial encounter for closed fracture (5) COPD (chronic obstructive pulmonary disease) Priority: Secondary Status: Chronic Qualifiers: COPD type: unspecified COPD Qualified Code(s): J44.9 - Chronic obstructive pulmonary disease, unspecified Hospital course: Ms. Ortega is a 63 year old female with past medical history significant for CAD, COPD with continuous 2lpm home 02, hypertension, hyperlipidemia, GERD, osteoporosis, depression, and tobacco abuse who presented as hospital transfer from [facility] where she presented for sudden onset right leg pain. Evaluation demonstrated right femoral shaft fracture, hypokalemia. Orthopedic surgery consultation was requested and the patient was admitted to the hospitalist service. Orthopedic surgery recommended internal fixation of the fracture but also requested cardiology evaluation for surgical risk. Cardiology assessed the patient was high risk and recommended chemical stress test and echocardiogram. Echocardiogram was unremarkable but patient did not tolerate stress test due to pain, decision was made to proceed with surgery regardless due to need for urgent surgical intervention. This was discussed the patient consented. Open reduction and femoral nailing of the right femur was performed on 07/09/19 without incident. Patient was returned to the medical floor for postoperative care and medical management. Evening of the surgery patient developed crushing chest pain with dynamic EKG changes, this is discussed with cardiology and with headaches surgery who recommended heparin drip. Heparin drip was started and patient was monitored for clinical disposition and serial hemoglobins were assessed. Over the next several days there were several drops in hemoglobin eventually stabilized, not requiring blood transfusion. Her chest pain symptoms eventually resolved and heparin drip was turned off. Stress test was again recommended however the patient refused due to being unable to tolerate the test. They eventually decided to follow-up the patient after discharge for possible outpatient stress test. She was then assessed by physical therapy who recommended snf facility due to significant deconditioning and difficulty ambulating secondary to femur fracture. This discussion was had with the patient by hospital service and social work. The patient was refusing, stating she wanted to go home. She was kept for several more days of physical therapy and medical management with the goal of clinical improvement. The patient was actually noncompliant with nursing instructions and fall precautions and had 2 separate incidents involving a fall and lowering to the ground. Repeat imaging was negative for any acute fracture, CT head was negative for any acute intracranial abnormality. Eventually the patient consented to referral to inpatient rehabilitation for therapy for physical deconditioning and femur fracture. Orthopedic surgery recommendations were made and are included in patient instructions and ECF referral. Patient is recommended to follow up outpatient with orthopedic surgery and cardiology for stress testing. She will receive one month of ASA 325 for DVT prophylaxis. Discharge discussed with: patient, social work, leasing sales consultant - Time Spent with Patient Total time spent providing and/or coordinating discharge services: Date of admission: 07/08/19 13:28 Primary care physician: Alma Rosa Wilburn CNP Consults: 07/08/19 05:11 Consult to Orthopedic Surgery [CONS] Routine Consulting Provider: [facility] Reason for Consult: Patient transfer from [facility] ER for displaced proximal right femoral shaft fracture. Sending ER spoke to Dr Abdalla who agreed to see patient in consult. Call Completed: Yes 07/08/19 08:05 Consult to Cardiology [CONS] Routine Comment: Consulting Provider: Cardiology Kar[facility] Reason for Consult: pre op risk assessment inpt with femur fracture requiring surgical nail, hx cad, abn stress in past with cath previously non obstructive cad Call Completed: No 07/09/19 00:30 Consult to Occupational Therapy [CONS] Routine Comment: Evaluate, develop and implement POC Reason for Consult: post hip surgery Does patient have active BEDREST order?: No Is patient medically & hemodynamically stable?: Yes Consult to Orthopedic Navigator [CONS] [CONS] Routine Consult to Physical Therapy [CONS] Routine Comment: Evaluate, develop and implement POC Reason for Consult: post hip surgery Does patient have active BEDREST order?: No Is patient medically & hemodynamically stable?: Yes Consult to Boilermaker Pipe Fitter [CONS] Routine Reason for SW Consult: post -op hip fracture RT Post Op Consult [CONS] Routine 07/09/19 10:13 Consult to Cardiology [CONS] Routine Comment: Consulting Provider: Cardiology Karol Reason for Consult: re-evaluate Call Completed: Yes Discharging clinician: Duane Espino Anticipated date of discharge: 07/14/19 - Constitutional Vitals: Temp Pulse Resp BP Pulse Ox 98 F 98 17 110/67 93 07/14/19 04:45 07/14/19 04:45 07/14/19 04:45 07/14/19 04:45 07/14/19 04:45 Exam: Resting comfortably in bed Alert and oriented 3 Pupils equal and reactive to light, extraocular movements intact Heart in regular rate and rhythm without murmur or gallop auscultated Lungs clear to auscultation bilaterally, no adventitious lung sounds noted Abdomen soft and nontender with normal bowel sounds present Bilateral lower extremities motor and sensation intact distally, minimal tenderness to right thigh Skin warm and dry - Patient Status Functional capacity at discharge: uses cane/walker Overall status at discharge: patient is not back to baseline - Diet and Activity Activity: as per physical therapy Diet: low fat, low cholesterol, low salt diet
[2019-07-14] MEDS: Budesonide/Formoterol 160/4.5 1 PUFF INH IH SCH (08:10)
[2019-07-14] MEDS: Vitamin B Complex/Vit C/Vit E 1 EACH TABLET PO SCH (08:58)
[2019-07-14] MEDS: amLODIPine 5 MG TABLET PO SCH (08:59)
[2019-07-14] MEDS: Aspirin 325 MG TABLET PO SCH (08:59)
[2019-07-14] MEDS: Famotidine 20 MG TABLET PO SCH (08:59)
[2019-07-14] MEDS: Acetaminophen 325 MG TABLET PO PRN (11:14)
--- NOTE | 2019-07-14 14:30 | Physician Discharge Referral ---
<Duane Espino - Last Filed: 07/14/19 14:28> ExtendedCare Referral Info Transfer To: [place] Provider in Charge: Clemente Provider in Charge after Transfer: PCP Institutional Level of Care: Skilled - Diagnosis (1) Right femoral shaft fracture Priority: Primary Status: Acute (2) Physical deconditioning Priority: Secondary Status: Acute (3) Anemia Priority: Secondary Status: Acute (4) CAD (coronary artery disease) Priority: Secondary Status: Chronic (5) COPD (chronic obstructive pulmonary disease) Priority: Secondary Status: Chronic Prognosis: Good Aware of Diagnosis: Patient Aware of Prognosis: Patient - Transfer Medications Prescriptions: Aspirin 325 mg PO DAILY 23 Days #23 tablet OxyCODONE/APAP 7.5/325 [Percocet 7.5/325 MG] 1 each PO Q8H PRN 2 Days #6 tablet PRN Reason: Severe Pain Home Medications: Atorvastatin [Lipitor] 10 mg PO DAILY 08/06/17 [History] Fluticasone/Vilanterol [Breo Ellipta 200-25 Mcg INH] 1 puff IH DAILY 08/06/17 [History] Metoprolol Tartrate [Lopressor] 50 mg PO BID 08/06/17 [History] Alendronate Sodium [Fosamax] 70 mg PO LUCAS 01/16/19 [History] raNITIdine HCl [Ranitidine HCl] 300 mg PO DAILY 01/16/19 [History] Levothyroxine [Synthroid] 75 mcg PO 0600 #30 tablet 01/19/19 [Rx] Megestrol Acetate [Megace] 40 mg PO DAILY #30 tablet 01/19/19 [Rx] Sertraline [Zoloft] 25 mg PO DAILY #30 tablet 01/19/19 [Rx] Vitamin B Complex/Vit C/Vit E [Stresstab] 1 each PO DAILY #30 tablet 01/19/19 [Rx] traZODone [TraZODone] 25 mg PO HS #15 tablet 01/19/19 [Rx] Amlodipine Besylate 5 mg PO DAILY 06/25/19 [History] Nitroglycerin [Nitrostat] 0.4 mg SL Q5MIN PRN 07/08/19 [History] Acetaminophen [Tylenol] 650 mg PO Q6HR PRN #0 tablet 07/14/19 [Rx] Aspirin 325 mg PO DAILY 23 Days #23 tablet 07/14/19 [Rx] OxyCODONE/APAP 7.5/325 [Percocet 7.5/325 MG] 1 each PO Q8H PRN 2 Days #6 tablet 07/14/19 [Rx] Allergies/Adverse Reactions: Allergy/AdvReac Type Severity Reaction Status Date / Time No Known Allergies Allergy Verified 07/08/19 20:33 - Respiratory Orders Oxygen / L per min (2L at rest and 4L with activity) Smoking Cessation: Smoking cessation has been advised. For more information, call the [employer] Line at 7-631-TZTFNOW. - Advance Directives Code Status: Full Code - Mobility Orders Ambulate - Rehabiliation Orders Rehab Potential: Good Rehab Orders: ROM Exercises, Evaluation for Physical Therapy, Evaluation for Occupational Therapy Other: Nonweightbearing to the right lower extremity due to the patient's osteopenia Recommend full-time Velcro wrist bracing to the right wrist nonweightbearing to the right wrist. May use a platform walker. -Nonweightbearing to the right lower extremity -Nonweightbearing to the right wrist -May weight-bear through the right elbow with a platform walker. - Treatments List/Other: Follow-up with Dr. Abdalla at the office 2 weeks from the surgery date for a post operative evaluation. Follow up with cardiology for outpatient stress test - Diet Orders Cardiac CERTIFICATION: I certify that the transfer of the above named patient to an Extended Care Facility is necessary for the continuing treatment of the diagnosis listed. The above information is true and accurate reflection of patient's current co ndition. Confidential - Redisclosure prohibited without a patient's written consent. <Yumi Cornejo - Last Filed: 07/14/19 15:37> - Diagnosis (1) COPD (chronic obstructive pulmonary disease) Status: Chronic (2) Right femoral shaft fracture Status: Acute (3) Decreased GFR Status: Acute (4) Decreased potassium in the blood Status: Acute (5) Tobacco abuse Status: Chronic (6) Uses alcohol occasionally Status: Chronic - Respiratory Orders Smoking Cessation: Smoking cessation has been advised. For more information, call the [employer] Quit Line at 1-194-AVEV-UJE. CERTIFICATION: I certify that the transfer of the above named patient to an Extended Care Facility is necessary for the continuing treatment of the diagnosis listed. The above information is true and accurate reflection of patient's current condition. Confidential - Redisclosure prohibited without a patient's written consent.
--- NOTE | 2019-07-14 15:47 | Electrocardiograph Report ---
[address] [address] Test Date: 2019-07-09 Pat Name: Mariajose Ortega Department: 114 Room: [facility] Gender: F [employer]im[employer] Supervisor: : 1955 Requested By: [id number] Order Number: [id number] Reading MD: zO Juarez Measurements Intervals Coyle Rate: 111 P: 46 FL: 128 QRS: 40 QRSD: 81 T: 77 QT: 347 QTc: 412 Interpretive Statements SINUS TACHYCARDIA NONSPECIFIC ST & T-WAVE ABNORMALITY ABNORMAL RHYTHM ECG Electronically Signed On 07-14-2019 15:45:04 EDT by Oz Juarez
[2019-07-14 15:55] VITALS: BP 104/66
== END 2019-07-14 19:15 | DRG 308 ==
LOC: 3NENU → SUATTDRO 01:28 → 3NENU 07-12 18:09
PROVIDERS: ADMIT Family Medicine; ATTEND Internal Medicine